=== PATIENT | male | born 1965 | race Caucasian/White ===

== ENCOUNTER 2020-05-02 06:37 | Inpatient (IN) ==
--- NOTE | 2020-03-13 07:57 | History & Physical Report ---
Date of Service March 13, 2020 date of surgery: 04-04-20 Assessment & Plan (1) Osteoarthritis of right knee: Risks and benefits of procedure discussed in detail today, patient would like to proceed with a Right total knee replacement at [facility] as scheduled. will obtain medical clearance from Dr Alarcon prior to surgery as well as obtain PATs at [facility]. Will place on ASA 81mg po bid x 1 month post op, f/u 2 weeks post op for routine post-operative care and x-ray, sooner if having any problems. will make arrangements for HHPT at the time of discharge. At this point in time, has failed conservative measures and would like to proceed with surgical intervention. History of Present Illness Chief Complaint: Right knee pain Primary Care Provider: BRUNO RUSH Mr Bradley is a 54 year old male who is here for a follow up of right knee pain, presents for pre-op evaluation prior to a right total knee replacement at [facility]. He presents with pain and stiffness on the right side. He states that the symptoms have been chronic non-traumatic and his symptoms occur constantly with intermittent worsening. Currently the patient states that the symptoms are moderate-severe and he describes the pain as aching, deep, throbbing and sharp. The symptoms occur with activity. He rates his best pain as 4/10. He rates his worst pain as 9/10. He rates his current pain as 7/10. The symptoms are aggravated by daily activities, descending stairs, kneeling, movement, walking and standing. he has had multiple cortisone injections in the past with short term relief, as well as previous right knee scope, PMM in April [address] Diaz. Allergies Allergy/AdvReac Type Severity Reaction Status Date / Time Penicillins AdvReac Intermediate SEVERE Verified 03/07/20 09:48 DIARRHEA Home Medications Home Medications Medication Instructions Recorded Confirmed Type amoxicillin 500 mg PO TID 03/07/20 03/07/20 History atorvastatin [Lipitor] 10 mg PO QAM 03/07/20 03/07/20 History Past Med/Surg History Medical History Hyperlipidemia Osteoarthritis Sleep apnea CPAP DEVICE Surgical History H/O knee surgery LEFT KNEE D/T INFECTION History of arthroscopy RT KNEE History of colonoscopy History of tonsillectomy Hx of oral surgery Hx of vasectomy Family History Brother Family history of diabetes mellitus Grandmother (Maternal) Family history of diabetes mellitus Social History Preferred Language: Togolese Communication Ability: Effective Security Orderly Required: No Beliefs That Will Affect Care: None Current Living Situation: Family Feels Safe at Home: Yes Safety Concerns: Feels Safe At This Time Smoking Status: Never smoker Do You Dip or Chew Tobacco: No ; Second Hand Exposure: No ; Tobacco Cessation Education Requested by Patient: No Hx Alcohol Use: Yes Hx Substance Use: No Review of Systems Review of Systems: All systems reviewed & are unremarkable except as noted in HPI & below Constitutional: no fever, no chills and no sweats Respiratory: no cough and no dyspnea Cardiovascular: no chest pain, no dyspnea and no orthopnea Gastrointestinal: no abdominal pain, no nausea and no vomiting Musculoskeletal: as per Subjective / HPI Physical Exam Physical Exam: Ht: 5ft 9in Wt: 158.75kg BP: 130/80 Pulse: 80 Constitutional: WD/WN, vitals as above no acute distress Respiratory: normal respiratory effort, lungs clear to auscultation no respiratory distress, no labored breathing and does not use accessory muscles Cardiovascular: RRR, no murmur, no edema Gastrointestinal (Abdomen): normal bowel sounds, soft, nontender, no hepatosplenomegaly Musculoskeletal: Knee: + knee abnormal to inspection (right knee), + effusion (+1 effusion), + surgical incision (well healed portals), + limited ROM of knee (ROM 0/3/110), + knee ROM with crepitation, + joint line tenderness (medial joint line) and + Melissa's sign positive; no deformity, no skin erythema, no ecchymosis, no valgus laxity, no varus laxity, anterior drawer test negative, Johnny's sign negative and pivot shift test negative Results & Data Results & Data ([facility]) Diagnostic Findings right knee x-ray from 12/23/19 showing narrowing of the medial compartment with overall varus alignment, there is also narrowing of the patellofemoral joint. there is osteophyte formation, subchondral sclerosis noted, no loose bodies, no acute bony pathology. overall impression Right knee Osteoarthritis.
--- NOTE | 2020-04-24 15:18 | History & Physical Report ---
Date of Service April 24, 2020 date of surgery: 05-02-20 Assessment & Plan (1) Osteoarthritis of right knee: Risks and benefits of procedure discussed in detail today, patient would like to proceed with a Right total knee replacement at [facility] as scheduled. will obtain medical clearance from Dr Alarcon prior to surgery as well as obtain PATs at [facility]. Will place on ASA 81mg po bid x 1 month post op, f/u 2 weeks post op for routine post-operative care and x-ray, sooner if having any problems. will make arrangements for HHPT at the time of discharge. At this point in time, has failed conservative measures and would like to proceed with surgical intervention. History of Present Illness Chief Complaint: right knee pain Primary Care Provider: BRUNO RUSH Mr Bradley is a 54 year old male who is here for a follow up of right knee pain, presents for pre-op evaluation prior to a right total knee replacement at [facility]. He presents with pain and stiffness on the right side. He states that the symptoms have been chronic non-traumatic and his symptoms occur constantly with intermittent worsening. Currently the patient states that the symptoms are moderate-severe and he describes the pain as aching, deep, throbbing and sharp. The symptoms occur with activity. He rates his best pain as 4/10. He rates his worst pain as 9/10. He rates his current pain as 7/10. The symptoms are aggravated by daily activities, descending stairs, kneeling, movement, walking and standing. he has had multiple cortisone injections in the past with short term relief, as well as previous right knee scope, PMM in April [address] Diaz. Allergies Allergy/AdvReac Type Severity Reaction Status Date / Time Penicillins AdvReac Intermediate SEVERE Verified 03/07/20 09:48 DIARRHEA Home Medications Home Medications Medication Instructions Recorded Confirmed Type amoxicillin 500 mg PO TID 03/07/20 03/07/20 History atorvastatin [Lipitor] 10 mg PO QAM 03/07/20 03/07/20 History Past Med/Surg History Medical History Hyperlipidemia Osteoarthritis Sleep apnea CPAP DEVICE Surgical History H/O knee surgery LEFT KNEE D/T INFECTION History of arthroscopy RT KNEE History of colonoscopy History of tonsillectomy Hx of oral surgery Hx of vasectomy Family History Brother Family history of diabetes mellitus Grandmother (Maternal) Family history of diabetes mellitus Social History Preferred Language: British Communication Ability: Effective Clerk Stenographer Required: No Beliefs That Will Affect Care: None Current Living Situation: Family Feels Safe at Home: Yes Safety Concerns: Feels Safe At This Time Smoking Status: Never smoker Do You Dip or Chew Tobacco: No ; Second Hand Exposure: No ; Tobacco Cessation Education Requested by Patient: No Hx Alcohol Use: Yes Hx Substance Use: No Review of Systems Review of Systems: All systems reviewed & are unremarkable except as noted in HPI & below Constitutional: no fever and no chills Respiratory: no cough and no dyspnea Cardiovascular: no chest pain, no dyspnea and no orthopnea Gastrointestinal: no abdominal pain, no nausea and no vomiting Musculoskeletal: as per Subjective / HPI Physical Exam Physical Exam: Ht: 5ft 9in Wt: 158.75kg BP: 130/80 Pulse: 80 Constitutional: WD/WN, vitals as above no acute distress Respiratory: normal respiratory effort, lungs clear to auscultation no respiratory distress, no labored breathing and does not use accessory muscles Cardiovascular: RRR, no murmur, no edema Gastrointestinal (Abdomen): normal bowel sounds, soft, nontender, no hepatosplenomegaly Musculoskeletal: Knee: + knee abnormal to inspection (right knee), + effusion (+1 effusion), + surgical incision (well healed portals), + limited ROM of knee (ROM 0/3/110), + knee ROM with crepitation, + joint line tenderness (medial joint line) and + Melissa's sign positive; no deformity, no skin erythema, no ecchymosis, no valgus laxity, no varus laxity, anterior drawer test negative, Johnny's sign negative and pivot shift test negative Results & Data Results & Data ([facility]) Diagnostic Findings right knee x-ray from 12/23/19 showing narrowing of the medial compartment with overall varus alignment, there is also narrowing of the patellofemoral joint. there is osteophyte formation, subchondral sclerosis noted, no loose bodies, no acute bony pathology. overall impression Right knee Osteoarthritis.
--- NOTE | 2020-04-25 14:04 | Anesthesiology Consultation ---
Date of Service April 25, 2020 Assessment & Plan (1) Encounter for pre-operative examination: Chart Review Chart Review: Acceptable Risk for Surgery and Patient NOT seen in Pre Admission Testing PCP 04/21/2020: pt is acceptable risk for upcoming surgery. Consults Requested none History Surgery Operation Date: 05/02/20 12:45 Proposed Procedures p Right Total Knee Arthroplasty - Nithin Farnsworth DO Height/Weight Height: 5 ft 9 in Weight: 158.757 kg Allergies Allergy/AdvReac Type Severity Reaction Status Date / Time Penicillins AdvReac Intermediate SEVERE Verified 03/07/20 09:48 DIARRHEA Medications Home Medications Medication Instructions Recorded Confirmed Last Taken amoxicillin 500 mg PO TID 03/07/20 03/07/20 Unknown atorvastatin [Lipitor] 10 mg PO QAM 03/07/20 03/07/20 Unknown Past Medical History Medical History Hyperlipidemia Osteoarthritis Sleep apnea CPAP DEVICE Past Family History Family History Brother Family history of diabetes mellitus Grandmother (Maternal) Family history of diabetes mellitus Past Surgical History Surgical History H/O knee surgery LEFT KNEE D/T INFECTION History of arthroscopy RT KNEE History of colonoscopy History of tonsillectomy Hx of oral surgery Hx of vasectomy Social History Smoking Status: Never smoker Do You Dip or Chew Tobacco: No Hx Alcohol Use: Yes alcohol intake frequency: holidays/special occasions only Hx Substance Use: No substance use type: does not use Testing Electrocardiogram Date: 03/17/20 Findings: + SB @ (57) Sinus rhythm with ventricular premature complexes in a bigeminal pattern nonspecific T wave abnormality. Echocardiogram Date: 03/23/20 EF 60%. Normal RV and LV.
[~2020-05-02 06:37] MED LIST: ACETAMINOPHEN 500 MG TAB PO SCH; BUPIVACAINE 0.5 % 5 MG/1 ML PF 10ML VIAL ONE; CLINDAMYCIN 600 MG/54 ML BAG IV SCH; CeleBREX 200 MG CAP PO SCH; EPINEPHrine INJ 1 MG/ML AMP ONE; FAMOTIDINE 20 MG TAB PO SCH; GABAPENTIN 600 MG DOSE PO SCH; LR 500ML BOLUS, THEN 15ML/HR IV SCH; METOCLOPRAMIDE HCL 10 MG TABLET PO SCH; ROPIVACAINE 0.5% 5 MG/ML 30 ML VIAL ONE; ROPIVACAINE 0.5% HCL/PF 150 MG, BUPIVACAINE 0.5% MPF 30 ML, EPINEPHrine 30MG/30ML (OR U... INSTIL SCH; TRANEXAMIC ACID 1,000 MG **IV Intra-op IV SCH; TRANEXAMIC ACID 1,000 MG **IV Pre-op IV SCH; dexAMETHasone 4 MG TAB PO SCH
[2020-05-02] MEDS ORDERED: PROPOFOL IV EMULSION 10 MG/ML 20 ML VIAL IV ONE (06:39)
[2020-05-02] MEDS ORDERED: LIDOCAINE HCL 2% 2 ML VIAL/AMP(20MG/ML) INFIL ONE (06:39)
[2020-05-02] MEDS ORDERED: MIDAZOLAM HCL 1 MG/ML 2ML VIAL ONE ×3 (06:40→10:25)
--- NOTE | 2020-05-02 07:19 | XRay Report ---
XR chest Pre-admission PA/Lat CLINICAL HISTORY: Preoperative evaluation. COMPARISON STUDY: No previous studies for comparison. FINDINGS: Lung volumes are normal. Lungs are clear. There is no pneumothorax or pleural effusion. Car diac size is normal. Mediastinal contours are normal. There is no evidence for pulmonary edema. IMPRESSION: No acute cardiopulmonary findings. ACT 112: Negative or not required by law. Electronically signed by: Eh Del Real M.D. 05/02/2020 7:18 AM
--- NOTE | 2020-05-02 07:38 | History & Physical Bridge Note ---
Date of Service May 02, 2020 History & Physical Bridge Note I have examined the patient, reviewed the History & Physical and in the interval since the performance of the History & Physical I have noted the following changes of clinical significance: no changes noted
[2020-05-02] MEDS ORDERED: BACITRACIN INJ 50,000 UNIT VIAL ONE (08:04)
[2020-05-02] MEDS ORDERED: ORTHO JOINT ANESTHETIC ONE (08:04)
[2020-05-02] MEDS ORDERED: CLINDAMYCIN PHOS 300 MG/2 ML VIAL ONE (09:24)
[2020-05-02] MEDS ORDERED: ePHEDrine sulfate 50 MG/ML SYR ONE (09:27)
[2020-05-02] MEDS ORDERED: fentaNYL citrate 100 MCG/2 ML VIAL ONE (09:54)
[2020-05-02] MEDS ORDERED: ePHEDrine sulfate 50 MG/ML AMP IV PRN (10:14)
[2020-05-02] MEDS ORDERED: ATROPINE SULFATE 0.1 MG/ML 10ML SYR IV PRN (10:14)
[2020-05-02] MEDS ORDERED: GLYCOPYRROLATE 0.2 MG/ML VIAL ONE (10:27)
--- NOTE | 2020-05-02 10:27 | Operative Report ---
Post Operative Report Pre & Post Diagnosis Operation Date: 05/02/20 08:35 Pre-Op Diagnosis: Right Knee Osteoarthritis Post-Op Diagnosis: Right Knee Osteoarthritis I identified the patient and participated in the time-out.: Yes Procedure Operation Date: 05/02/20 08:35 Actual Procedures p Right Total Knee Arthroplasty(Right) utilizing [facility] [employer] [facility] journey 2 patient matched total knee arthroplasty size 8 femur size 7 tibia with an 18 x 100 mm stem 12 mm polyethylene high flex 35 oval patella- Nithin Farnsworth DO Surgeon Nithin Farnsworth DO Community Planner NATASHA Cleary Estimated Blood Loss 10 Findings Consistent with Post-Op Diagnosis Patient presents with severe end-stage tricompartmental degenerative joint disease with [id number] changes medial lateral osteophytes sclerosis subchondral cystic changes moderate to large effusion pseudo-ligamentous laxity no response to conservative management patient resents for total knee arthroplasty. Specimens Bone and cartilage Drains Medium bore Hemovac Anesthesia Type MAC Regional Complications none Disposition Accompanied Patient To Recovery: No Disposition: Recovery Room Indications Patient presents with ongoing complaints of pain trouble to the right knee no response to conservative management the above intraoperative findings were noted patient failed times a corticosteroid injection Visco supplementation relative rest activity modification weight loss the above intraoperative findings were noted. Description of Procedure Please note patient had a BMI of 52After proper prepping and draping of the Right lower extremity anterior midline incision was made over the region of the extensor extensor mechanism after meticulous hemostasis was obtained and maintained in subcutaneous tissues a medial parapatellar incision was made The patella was subluxed lateralward the medial lateral gutter were cleaned from any hypertrophic synovitis and scar tissue of the distal femoral block was placed and the distal femoral osteotomy cut was made subsequently the chamfers anterior and posterior osteotomy cuts were made utilizing the 4-in-1 block the tibia was subsequently subluxed anteriorward medial and ateral meniscal remnants were excised in their entirety remnants of the anterior and posterior cruciate ligaments were excised in their entirety excellent exposure of the proximal tibia was obtained the tibial osteotomy guide was placed on the proximal tibial osteotomy cut was made once again the knee was irrigated with copious amounts of sterile saline solution the patella was subsequently everted lateralward thickened scar tissue around the patella was removed the patella was subsequently cut utilizing a freehand technique and was drilled prepared for final preparation and placement of patella socially flexion-extension gaps were checked and the equal and symmetric trials were placed to the appropriate femoral and tibial trials with poly-spacer being placed for equal flexion and extension gaps and full range of motion including extension to 0 and flexion to 140 the trial components after having been taken to recovery range of motion was subsequently removed meticulous hemostasis was obtained and maintained subsequently a knee block injection of joint cocktail including ropivacaine 0.5% 150 mg. Bupivacaine 0.5% epinephrine 1-200,030 mL's toradol 30 mg dexamethasone 4 mg ketamine 10 mg clonidine 100 micrograms normal saline solution 30 mg was infiltrated into the soft tissues of the posterior knee medial lateral gutters and periosteal synovium special attention was paid to protect neurovascular structures at all times subsequently trial components having been removed the knee was irrigated with sterile saline solution. debris was removed the proximal tibia was subsequently prepared and was made ready for the placement of the tibial component tibial component was also cemented and tamped into position the femoral component was subsequently placed and cemented in the position the patellar component was subsequently cemented in position because hemostasis once again obtained and maintained wound having been thoroughly irrigated with debridement and debridement lavage was performed as well as a medial parapatellar incision closed with #1 Vicryl in interrupted fashion subcutaneous was closed with #2 Vicryl skin was closed with skin clips. PA-C was necessary for prepping and drapping as well as wound closure of deep fascia Sub cutaneous tissue and skin and was necessary for the case. A sterile compressive dressing was placed patient was taken to recovery in stable condition of report dictated by Javad I attest to the content of the Intraoperative Record and any orders documented therein. Any exceptions are noted below. I attest to the content of the Intraoperative Record and any orders documented therein. Any exceptions are noted below.
--- NOTE | 2020-05-02 11:39 | Anesthesiology Progress Note ---
Date of Service May 02, 2020 Anesthesia Post Procedure Vital Signs Vital Signs: Temp Pulse Pulse Resp BP BP Pulse Ox 05/02/20 11:35 59 L 18 118/68 94 05/02/20 11:26 68 17 126/71 95 05/02/20 11:16 58 L 19 125/60 98 05/02/20 11:06 36.0 C L 68 20 126/63 97 05/02/20 07:23 36.8 C 61 24 165/92 H 97 Pain Intensity Right Knee: Pain Intensity: 0 Transfer of Care Handoff Completed per policy Notes Mental Status: alert / awake / arousable Patient Amnestic to Procedure: Yes Nausea / Vomiting: adequately controlled Pain: adequately controlled Airway Patency, RR, SpO2: stable & adequate BP & HR: stable & adequate Hydration State: stable & adequate Neuraxial Anesthesia: was administered and sensory block is resolving Anesthetic Complications: no major complications apparent
--- NOTE | 2020-05-02 11:46 | XRay Report ---
XR knee RT 1 or 2V routine HISTORY: 54 years-old Male Surgical Post Op right knee total joint arthroplasty COMPARISON: None TECHNIQUE: 2 views of the right knee FINDINGS: Right knee total joint arthroplasty and patella resurfacing. Satisfactory alignment without acute fra cture or retained foreign body identified. Expected postoperative soft tissue swelling and deep tissu e air. Anterior midline skin ned with surgical drainage catheter. IMPRESSION: Right knee total joint arthroplasty with expected postoperative findings. ACT 112: Negative or not required by law. The above report was generated using voice recognition software. It may contain grammatical, syntax o r spelling errors. Electronically signed by: Dani Rivers M.D. 05/02/2020 11:45 AM
[2020-05-02] MEDS ORDERED: bisacodyL 10 MG SUPP PR PRN (12:07)
[2020-05-02] MEDS ORDERED: NALOXONE HCL 0.4 MG/1 ML VIAL/CARP IV PRN (12:07)
[2020-05-02] MEDS ORDERED: METOCLOPRAMIDE HCL INJ 5 MG/ML 2 ML VIAL IV PRN (12:07)
[2020-05-02] MEDS ORDERED: MAGNESIUM HYDROXIDE SUSP 30 ML UDC PO PRN (12:07)
[2020-05-02] MEDS ORDERED: ONDANSETRON INJ 2 MG/ML 2 ML VIAL IV PRN (12:07)
[2020-05-02] MEDS ORDERED: HYDROmorphone INJ 1 MG/ML SYRINGE IV PRN (12:07)
[2020-05-02] MEDS: SODIUM CHLORIDE 0.9% 1000ML 1,000 ML IV SCH ×2 (12:37→23:41)
[2020-05-02] MEDS: MISSING PHYSICIAN SIGNATURE ON ORDER SCH ×3 (12:45→13:05)
--- NOTE | 2020-05-02 13:28 | Hospitalist Consultation ---
Date of Consultation May 02, 2020 Assessment & Plan (1) Osteoarthritis of right knee: S/p right knee TKA 05/02 Pain control, dvt proph per primary Monitor for acute blood loss - cbc am (2) HLD (hyperlipidemia): continue atorvastatin (3) Sleep apnea: May use own cpap History of Present Illness Attending Physician: Nithin Farnsworth, History of Present Illness Mr. Bradley is feeling well post operatively, no complaints. 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 smoker, very rare alcohol Allergies Allergy/AdvReac Type Severity Reaction Status Date / Time Penicillins Allergy Mild SEVERE Verified 05/02/20 07:09 DIARRHEA and mild rash Home Medications Home Medications Medication Instructions Recorded Confirmed Type atorvastatin [Lipitor] 10 mg PO QAM 03/07/20 05/02/20 History Patient History Medical History Hyperlipidemia Osteoarthritis Sleep apnea CPAP DEVICE Surgical History H/O knee surgery LEFT KNEE D/T INFECTION History of arthroscopy RT KNEE History of colonoscopy History of tonsillectomy Hx of oral surgery Hx of vasectomy Family History Brother Family history of diabetes mellitus Grandmother (Maternal) Family history of diabetes mellitus Social History Preferred Language: Central African Communication Ability: Effective Centerless Grinder Required: No Beliefs That Will Affect Care: None Current Living Situation: Family Feels Safe at Home: Yes Safety Concerns: Feels Safe At This Time Smoking Status: Never smoker Do You Dip or Chew Tobacco: No ; Second Hand Exposure: No ; Tobacco Cessation Education Requested by Patient: No Hx Alcohol Use: Yes Hx Substance Use: No Review of Systems Constitutional: no fever, no chills and no body aches Respiratory: no cough and no dyspnea Cardiovascular: + lightheadedness; no chest pain and no dyspnea Gastrointestinal: no abdominal pain, no nausea and no vomiting Genitourinary: no dysuria and no urinary hesitancy Musculoskeletal: no joint pain and no muscle weakness Integumentary: no rash Neurologic: no loss of sensation Physical Exam Physical Exam: General: no distress Eyes: normal inspection, PERLL Respiratory: chest non tender, clear to auscultation, normal breath sounds, no respiratory distress, no accessory muscle use Cardiac: regular rate and rhythm, no rub or gallop, no murmur, no edema, no jvd GI/: active bowel sounds, no abd pain or tenderness, soft, non distended Extremities: normal range of motion, normal strength, non tender Neuro/Psych: alert and oriented x 3, normal mood and affect Skin: normal color, dry Results & Data Results & Data ([facility]) Vital Signs (Past 12 Hours) Vital Signs Temp Pulse Pulse Resp BP BP Pulse Ox 05/02/20 13:00 81 16 113/72 96 05/02/20 12:30 60 16 113/74 96 05/02/20 12:00 36.3 C L 68 18 131/73 95 05/02/20 11:50 36.3 C L 54 L 16 125/52 L 96 05/02/20 11:45 36.3 C L 52 L 12 118/58 L 96 05/02/20 11:35 59 L 18 118/68 94 05/02/20 11:26 68 17 126/71 95 05/02/20 11:16 58 L 19 125/60 98 05/02/20 11:06 36.0 C L 68 20 126/63 97 05/02/20 07:23 36.8 C 61 24 165/92 H 97 PG Care Time/CCT Total # of Minutes Spent Total Time Spent with Patient: Total time spent is greater than 50% in coordination of care (as documented) at patient's floor/unit and/or counseling patient: Coding Level of Care Code 92722 Inpt Consult Level 3 Diagnoses Osteoarthritis of right knee M17.11 HLD (hyperlipidemia) E78.5 Sleep apnea G47.30
[2020-05-02] MEDS: ACETAMINOPHEN 500 MG TAB PO SCH ×2 (14:11→21:38)
[2020-05-02] MEDS: KETOROLAC 30 MG/ML VIAL IV SCH ×2 (14:11→19:37)
[2020-05-02] MEDS: CLINDAMYCIN 600 MG in DEXTROSE 5% 50 ML IV SCH ×2 (16:29→23:41)
[2020-05-02] MEDS: OXYCODONE HCL IR 5 MG TAB (IMMEDIATE RELEASE) PO PRN ×2 (16:36→22:51)
[2020-05-02] MEDS ORDERED: SENNA 8.6 MG TAB PO SCH (21:00)
[2020-05-02] MEDS: ASPIRIN 81 MG ECTAB PO SCH (21:39)
[2020-05-02] MEDS: DOCUSATE SODIUM 100 MG CAP PO SCH (21:39)
[2020-05-03] MEDS: KETOROLAC 30 MG/ML VIAL IV SCH ×2 (02:41→08:32)
[2020-05-03] MEDS: ACETAMINOPHEN 500 MG TAB PO SCH (05:12)
[2020-05-03 06:40] LABS: Hematocrit (blood only) 36.7 % (42-52); Hemoglobin 12.1 g/dL (14.0-18.0); Mean Corpuscular Hemoglobin 29.9 pg (25-34); Mean Corpuscular Volume 90.6 fL (80-100); Mean Platelet Volume 10.3 fL (7.4-10.4); Platelet Count 215 K/uL (130-400); RDW Coefficient of Variation 13.5 % (11.5-14.5); RDW Standard Deviation 44.6 fL (36.4-46.3); Red Blood Count 4.05 M/uL (4.7-6.1)
[2020-05-03 07:11] LABS: BUN Creatinine Ratio 18.1 (10-20); Calcium 8.2 mg/dl (8.5-10.1); Creatinine Clr Calc Pharmacy 111.7 ml/min; Est GFR (African American) 85.6; Est GFR (Non-African American) 73.8; Potassium 4.4 mmol/L (3.5-5.1)
[2020-05-03] MEDS: OXYCODONE HCL IR 5 MG TAB (IMMEDIATE RELEASE) PO PRN ×2 (07:12→11:53)
--- NOTE | 2020-05-03 08:08 | Orthopedic Progress Note ---
Date of Service May 03, 2020 Assessment & Plan (1) History of total right knee replacement: POD #1 s/p Right TKA pt/ot dvt proph with SANTOS/SCD/ASA plan for d/c home with HHPT, possibly after PT today. Admission and Anticipated Discharge Date Admission Date: May 02, 2020 Subjective POD #1 s/p Right TKA Review of Systems Constitutional: no fever, no chills and no sweats Respiratory: no cough and no dyspnea Cardiovascular: no chest pain and no dyspnea Gastrointestinal: no abdominal pain, no nausea and no vomiting Physical Exam Physical Exam: Vital Signs Temp 36.4 C L 05/03/20 07:48 Pulse 56 L 05/03/20 07:48 Resp 18 05/03/20 07:48 BP 131/69 05/03/20 07:48 Pulse Ox 97 05/03/20 07:48 Intake & Output 05/02/20 05/03/20 05/03/20 18:59 06:59 18:59 Intake Total 3229.667 / 4998.66 7 1769.000 / 4998.66 7 Output Total 1105 / 2205 1100 / 2205 Balance 2124.667 / 2793.66 7 669.000 / 2793.667 Weight 159.6 kg Intake: IV 1304.667 / 2513.66 7 1209.000 / 2513.66 7 Cleocin 600 mg In D5w 50 ml @ 54 / 108 54 / 108 100 mls/hr IV Q8H JANE Rx#: [id number] CLEOCIN 600 mg In 54 ml @ 100 54 / 54 mls/hr IV PREO P JANE Rx#: [id number] Lr 1,000 ml @ 15 mls/hr IV . 600 / 600 Q24H JANE Rx#:[id number] Nss 1000ML 1,0 00 ml @ 100 mls/ 396.667 / 1667.091 9913.000 / 1551.66 7 hr IV .Q10H SC H Rx#:[id number] TRANEXAMIC ACI D / 0.7% NACL 1, 200 / 200 000 mg In 100 ml @ 600 mls/hr IV TODAY@0600 JANE Rx#:[id number] IV Perioperative 1300 / 1300 Oral 625 / 1185 560 / 1185 Output: Urine 102 / 5 1000 / 2024 Estimated Blood Loss 10 / 10 Drain Output 70 / 170 100 / 170 Right Knee Hem ovac 70 / 170 100 / 170 Constitutional: WD/WN, vitals as above no acute distress Musculoskeletal: Right Leg: NVDI, calf SNT, negative sara sign. DP palpable, able to wiggle toes/ankle movement without difficulty. dressing clean dry and intact. Prevena functioning properly. Results & Data ([facility]) Vital Signs (Past 12 Hours) Vital Signs Temp Pulse Pulse Pulse Resp BP Pulse Ox 05/03/20 07:48 36.4 C L 56 L 18 131/69 97 05/03/20 03:18 56 L 14 97 05/03/20 02:42 36.3 C L 51 L 14 106/63 98 05/02/20 23:15 55 L 18 96 05/02/20 22:53 55 L 05/02/20 22:50 36.3 C L 50 L 18 118/65 97 Laboratory Results Laboratory Results WBC 14.30 K/uL (4.8-10.8) H 05/03/20 06:15 RBC 4.05 M/uL (4.7-6.1) L 05/03/20 06:15 Hgb 12.1 g/dL (14.0-18.0) L 05/03/20 06:15 Hct 36.7 % (42-52) L 05/03/20 06:15 MCV 90.6 fL (80-100) 05/03/20 06:15 MCH 29.9 pg (25-34) 05/03/20 06:15 MCHC 33.0 g/dL (32-36) 05/03/20 06:15 RDW Std Deviation 44.6 fL (36.4-46.3) 05/03/20 06:15 RDW Coeff of Sandoval 13.5 % (11.5-14.5) 05/03/20 06:15 Plt Count 215 K/uL (130-400) 05/03/20 06:15 MPV 10.3 fL (7.4-10.4) 05/03/20 06:15 Sodium 136 mmol/L (136-145) 05/03/20 06:15 Potassium 4.4 mmol/L (3.5-5.1) 05/03/20 06:15 Chloride 107 mmol/L (98-107) 05/03/20 06:15 Carbon Dioxide 23 mmol/L (21-32) 05/03/20 06:15 Anion Gap 6.0 (3-11) 05/03/20 06:15 BUN 20 mg/dl (7-18) H 05/03/20 06:15 Creatinine 1.11 mg/dl (0.6-1.4) 05/03/20 06:15 Est Cr Clr Drug Dosing 111.7 ml/min 05/03/20 06:15 Est GFR ( Amer) 85.6 05/03/20 06:15 Est GFR (Non-Af Amer) 73.8 05/03/20 06:15 BUN/Creatinine Ratio 18.1 (10-20) 05/03/20 06:15 Glucose 161 mg/dl (70-99) H 05/03/20 06:15 Calcium 8.2 mg/dl (8.5-10.1) L 05/03/20 06:15 Blood Type A Positive 05/02/20 06:52 Antibody Screen NEGATIVE 05/02/20 06:52 Diagnostic Findings XR knee RT 1 or 2V routine HISTORY: 54 years-old Male Surgical Post Op right knee total joint arthroplasty COMPARISON: None TECHNIQUE: 2 views of the right knee FINDINGS: Right knee total joint arthroplasty and patella resurfacing. Satisfactory alignment without acute fracture or retained foreign body identified. Expected postoperative soft tissue swelling and deep tissue air. Anterior midline skin ned with surgical drainage catheter. IMPRESSION: Right knee total joint arthroplasty with expected postoperative findings.
--- NOTE | 2020-05-03 08:20 | Anesthesiology Progress Note ---
Date of Service May 03, 2020 Anesthesia Post Procedure Vital Signs Vital Signs: Temp Pulse Pulse Pulse Pulse Pulse Resp 05/03/20 07:48 36.4 C L 56 L 18 05/03/20 03:18 56 L 14 05/03/20 02:42 36.3 C L 51 L 14 05/02/20 23:15 55 L 18 05/02/20 22:53 55 L 05/02/20 22:50 36.3 C L 50 L 18 05/02/20 20:00 36.5 C 56 L 16 05/02/20 15:15 36.2 C L 60 16 05/02/20 14:00 36.4 C L 60 18 05/02/20 13:00 81 16 05/02/20 12:30 60 16 05/02/20 12:00 36.3 C L 68 18 05/02/20 11:50 36.3 C L 54 L 16 05/02/20 11:45 36.3 C L 52 L 12 05/02/20 11:35 59 L 18 05/02/20 11:26 68 17 05/02/20 11:16 58 L 19 05/02/20 11:06 36.0 C L 68 20 BP Pulse Ox 05/03/20 07:48 131/69 97 05/03/20 03:18 97 05/03/20 02:42 106/63 98 05/02/20 23:15 96 05/02/20 22:53 05/02/20 22:50 118/65 97 05/02/20 20:00 122/66 95 05/02/20 15:15 111/68 96 05/02/20 14:00 103/62 96 05/02/20 13:00 113/72 96 05/02/20 12:30 113/74 96 05/02/20 12:00 131/73 95 05/02/20 11:50 125/52 L 96 05/02/20 11:45 118/58 L 96 05/02/20 11:35 118/68 94 05/02/20 11:26 126/71 95 05/02/20 11:16 125/60 98 05/02/20 11:06 126/63 97 Pain Intensity Right Knee: Pain Intensity: 5 Notes Mental Status: alert / awake / arousable and participated in evaluation Nausea / Vomiting: adequately controlled Pain: adequately controlled Airway Patency, RR, SpO2: stable & adequate BP & HR: stable & adequate Hydration State: stable & adequate
[2020-05-03] MEDS: ASPIRIN 81 MG ECTAB PO SCH (08:32)
[2020-05-03] MEDS: DOCUSATE SODIUM 100 MG CAP PO SCH (08:32)
[2020-05-03] MEDS ORDERED: MULTIVITAMIN TAB PO SCH (09:00)
[2020-05-03] MEDS ORDERED: ATORVASTATIN 10 MG TAB PO SCH (09:00)
--- NOTE | 2020-05-03 19:21 | Discharge Summary ---
Date of Service date of discharge: May 03, 2020 date of admission: 05-02-20 Admission HPI Per Admitting Provider Mr Bradley is a 54 year old male who is here for a follow up of right knee pain, presents for pre-op evaluation prior to a right total knee replacement at [facility]. He presents with pain and stiffness on the right side. He states that the symptoms have been chronic non-traumatic and his symptoms occur constantly with intermittent worsening. Currently the patient states that the symptoms are moderate-severe and he describes the pain as aching, deep, throbbing and sharp. The symptoms occur with activity. He rates his best pain as 4/10. He rates his worst pain as 9/10. He rates his current pain as 7/10. The symptoms are aggravated by daily activities, descending stairs, kneeling, movement, walking and standing. he has had multiple cortisone injections in the past with short te rm relief, as well as previous right knee scope, PMM in April [address] Diaz. Principal Diagnosis right knee arthritis Discharge Exam Vital Signs Temp Pulse Pulse Pulse Pulse Pulse Resp 05/03/20 11:30 36.4 C L 53 L 18 05/03/20 11:08 36.4 C L 56 L 51 L 60 56 L 18 05/03/20 07:48 36.4 C L 56 L 18 05/03/20 03:18 56 L 14 05/03/20 02:42 36.3 C L 51 L 14 05/02/20 23:15 55 L 18 05/02/20 22:53 55 L 05/02/20 22:50 36.3 C L 50 L 18 05/02/20 20:00 36.5 C 56 L 16 BP Pulse Ox 05/03/20 11:30 116/67 98 05/03/20 11:08 131/69 97 05/03/20 07:48 131/69 97 05/03/20 03:18 97 05/03/20 02:42 106/63 98 05/02/20 23:15 96 05/02/20 22:53 05/02/20 22:50 118/65 97 05/02/20 20:00 122/66 95 Intake and Output 05/03/20 05/03/20 05/03/20 06:59 14:59 22:59 Intake Total 605.667 / 4998.667 Output Total 750 / 2205 Balance -144.333 / 2793.667 Intake: IV 605.667 / 2513.667 Cleocin 600 mg In D5w 50 ml @ 54 / 108 100 mls/hr IV Q8H JANE Rx#: [id number] Nss 1000ML 1,000 ml @ 100 mls/ 551.667 / 1551.667 hr IV .Q10H JANE Rx#:[id number] Output: Urine 700 / 2025 Drain Output 50 / 170 Right Knee Hemovac 50 / 170 Other: Weight 159.6 kg Patient Weight 05/04/20 06:59 Weight 159.6 kg Constitutional WD/WN, vitals as above no acute distress Musculoskeletal right knee: NVDI, calf SNT, negative sara sign. DP palpable, able to wiggle toes/ankle movement without difficulty. Prevena dressing clean dry and intact. expected post-operative bruising noted. Discharge Data Allergies Allergy/AdvReac Type Severity Reaction Status Date / Time Penicillins Allergy Mild SEVERE Verified 05/02/20 07:09 DIARRHEA and mild rash Consultations 05/02/20 12:07 Consult Case Management - Discharge Planning Routine Consult Hospitalist Routine Procedures Performed Operation Date: 05/02/20 08:35 Actual Procedures p Right Total Knee Arthroplasty(Right) - Nithin Farnsworth DO Ordered Studies 05/02/20 05:00 US - OR guided needle placemen Stat Hospital Course (1) History of total right knee replacement: POD #1 s/p Right TKA pt/ot dvt proph with SANTOS/SCD/ASA plan for d/c home with HHPT, possibly after PT today. Total Time Total Time Spent Total Time Spent (In Minutes): 20 Total Time Includes: Examination of the Patient, Discharge Planning and Medication Reconciliation Discharge Plan Discharge Items Patient Disposition: Home - Home Health Services Reason For Visit: Right Knee Osteoarthritis Discharge Diagnosis: right total knee replacement Condition on Discharge: Good Activity: Resume your previous activity Weightbearing: Full weightbearing and Right weightbearing Non-emergency contact: Surgeon Call non-emergency contact if: you have any medication questions, your temperature is above 101, your wound has increased redness, your wound has increased drainage and your wound pain has increased Follow-up/Referrals: BRUNO RUSH D.O. [Primary Care Provider] - Diet: Regular Addtl Attending Provider Instructions: ACTIVITY RECOMMENDATIONS: SELF CARE INSTRUCTIONS AFTER TOTAL KNEE REPLACEMENT A. You may need to continue a physical therapy program after discharge from the hospital. There are several options available to you. Your doctor will assist you in selecting the best one for you. 1. An out-patient facility 2 to 3 times a week for therapy or home therapy. 2. Continue working on all exercises taught to you in the hospital. Your goals should be to increase bending of your knee to 90 degrees and beyond and to fully straighten your knee. B. You may progress at your own pace from walking with a walker or crutches to a cane; then to no assistive devices. C. Make walking a part of your daily routine. Be up as much as comfortable with rest periods throughout the day. Rest with leg elevation is very important. Use the ice wrap frequently for the first 3-4 weeks. D. There are no restrictions on activities. You may ride in a car, shop, participate in sectional belt mold assembler and all social activities. E. Wear the long elastic stockings (SANTOS hose) 20 hours a day for 2 weeks after surgery. They can be removed several times a day for laundering and for a bath. F. You may shower, no tub baths until cleared by your doctor. SPECIAL CARE INSTRUCTIONS: VERY IMPORTANT TO READ AND REVIEW A. There are a few signs you need to watch for after you are home. Call [facility] if you notice any of the followin. Increased severe knee pain. Some pain is expected especially when you exercise. 2. Increased swelling in your leg or knee; pain or swelling of the calf muscle in either lower leg. 3. Any fluid drainage from the incision. 4. Shortness of breath or chest pain. B. Please call [facility] [place] at if you have any concerns or questions about your operation or recovery. The doctor or his nurse will return your call promptly. C. You must take antibiotics before dental work, bladder, bowel or other surgery. Your doctor will provide you with a permanent care to carry describing this precaution. IMPORTANT: * REMEMBER TO TAKE ASPIRIN, 81 MG, TWICE DAILY FOR 4 WEEKS UNLESS OTHERWISE DIRECTED. THIS IS YOUR BLOOD THINNER. * HIGH RISK PATIENTS MAY BE PRESCRIBED A STRONGER BLOOD THINNER. THIS WILL BE PROVIDED AT DISCHARGE. * CALL IF INCREASED PAIN, REDNESS, DRAINAGE OR FEVER GREATER THAT 101. * WEAR SANTOS HOSE 20 HOURS PER DAY FOR 2 WEEKS. * Prevena- This is a large suction dressing covering your incision. This will help pull any excess drainage from the wound and allow your incision to heal properly. You may shower with this if you can keep the unit outside of the shower. If any bleeding or leakage is noted please call your doctor's office. This will remain on your incision for 7 days and then should be removed. This can be done yourself or by the home nursing staff if applicable. The entire unit is disposable once removed. Once removed, keep incision clean and dry. If redness or drainage is noted, please call your surgeon. IF INCISION IS LEAKING THROUGH DRESSING, CALL THE OFFICE . FOLLOW UP VISIT: If appointment is not already scheduled: Please call [facility] to make a follow-up appointment for 2 weeks after your surgery at . Pending Studies at Discharge: No Stand-Alone Forms: My [facility], Opioid Pain Management, Smoking Cessation Medications and DC Order Prescriptions: New celecoxib [Celebrex] 200 mg Capsule 200 mg PO BID 30 Days Qty: 60 RF: 0 aspirin 81 mg Tablet,Delayed Release (Dr/Ec) 81 mg PO BID 30 Days Qty: 60 RF: 0 acetaminophen 500 mg Tablet 1,000 mg PO Q8 21 Days Qty: 126 RF: 0 oxycodone 5 mg Tablet 5 - 10 mg PO Q4H PRN (Reason: pain) Qty: 30 RF: 0 docusate sodium 100 mg Capsule 100 mg PO BID 10 Days Qty: 20 RF: 0 clindamycin HCl 300 mg capsule 300 mg PO TID 10 Days Qty: 30 RF: 0 Continued atorvastatin [Lipitor] 10 mg Tablet 10 mg PO QAM RF: 0 Discharge Orders: Discharge Order (Routine); Ordered 05/03/20 Ordered By: Christofer Garcia/Other Patient Handouts: Understanding Knee Replacement, Knee Replacement Total Dc Admission Data Admit Date/Time: 05/02/20 11:12 Attending Provider: Nithin Farnsworth Admit Provider: Nithin Farnsworth Primary Care Provider: BRUNO RUSH Other Providers: Brandyn Parrish ; Stephen Coughlin ; Selina Figueroa ; Melissa Win ; Brandon Barrientos ; Edwardo Frazier ; Kristine Wynn ; Nithin Holliday ; Casey Grewal ; Clinton Weller ; Tomeka Kincaid ; Masha Marquez ; Maribel Bird ; Terri Card ; Dontrell Henderson ; Daniela Mariscal ; Cortney Glynn ; Familia Oseguera ; Jm Amador ; Adeel Valdez ; Rosy Arciniega ; Tiffany Hamm ; Desmond Marvin ; Brandon López ; Daniel Padilla ; Noah Kraft ; Laxmi Stack ; Turner Stack ; Nesotr Patricia ; Dwayne Nichols ; Marlena Blum ; Jaime Everett ; Celso Mckenzie ; Elisabeth López ; Fernandez Pisano Other Interventions: Discharge Summary Assessment (RN) Last Done: 05/03/20 11:08 DC Date/Time DO NOT enter until pt leaves facility: 05/03/20 13:33
[2020-05-03] MEDS ORDERED: CeleBREX 200 MG CAP PO SCH (21:00)
== END 2020-05-03 13:33 | disposition home health service (06) | DRG 470 ==
LOC: ASU 06:37 → 3E 11:12

== ENCOUNTER 2022-05-07 08:15 | Inpatient (IN) ==
--- NOTE | 2022-04-04 08:39 | PAT Medication Instructions ---
Medication Instructions Date of Service April 04, 2022 Home Medications atorvastatin 10 mg tablet (Lipitor) 10 mg PO QAM Take morning of surgery With a small sip of water, OTHERWISE NOTHING TO EAT OR DRINK AFTER MIDNIGHT: atorvastatin 10 mg tablet (Lipitor) 10 mg PO QAM Other Notes If you have any questions please call us at [phone] or [phone] or [phone] or [phone]
--- NOTE | 2022-04-05 08:25 | Anesthesiology Consultation ---
Date of Service April 05, 2022 Assessment & Plan (1) Encounter for pre-operative examination: - surgeon ordered PCP clearance 04/29/22. Optimization note faxed to PCP. - COVID screening: Per assessment on 04/05/2022: Travel screen negative, no known COVID-19 positive contacts or current COVID-19 related symptoms in past 2 weeks. Surgeon arranging preop COVID testing, scheduled 05/03/2022. Awaiting results. Chart Review Chart Review: Pending: Refer to Additional Notes / Consult section and Patient seen in Pre Admission Testing Teaching & Discussion Pre-Anesthesia Teaching/Discussion Notes: Instructed NPO after midnight before surgery, except medications with 15 cc of water. Medication instructions provided according to the PAT guidelines. History Surgery Operation Date: 05/07/22 07:15 Proposed Procedures p Left Total Knee Arthroplasty - Nithin Farnsworth DO Height/Weight Height: 5 ft 9 in Weight: 171.2 kg Allergies Allergy/AdvReac Type Severity Reaction Status Date / Time coconut Allergy Intermediate Hives Verified 04/03/22 11:09 Penicillins Allergy Intermediate SEVERE Verified 04/03/22 11:09 DIARRHEA and HIVES Medications Home Medications Medication Instructions Recorded Confirmed Last Taken atorvastatin 10 mg tablet (Lipitor) 10 mg PO QAM 03/07/20 04/03/22 05/01/20 09:00 Past Medical History Medical History (Updated 04/05/22 @ 15:22 by Vilma Li PA-C) Hyperlipidemia Osteoarthritis Pulmonary hypertension RVSP 38 mmHg on 2019 echo Sleep apnea CPAP DEVICE-compliant White coat syndrome with hypertension Patient denies h/o stroke, seizures, heart attack, heart failure, DM, blood clots or blood transfusions. Exercise / Class Metabolic Activity III < 4 Walking/Shop/Light housework (denies CP or SOB, reduced physical activity d/t knee pain) Past Family History Family History Brother Family history of diabetes mellitus Grandmother (Maternal) Family history of diabetes mellitus Other No family history of adverse response to anesthesia Past Surgical History Surgical History (Updated 04/05/22 @ 08:26 by Vilma Li PA-C) H/O knee surgery LEFT KNEE D/T INFECTION History of arthroscopy RT KNEE History of colonoscopy History of tonsillectomy History of total knee replacement RT 05/02/20: SAB L3-L4 x 1 attempt + PNB. No postop issues per anesthesia progress note. Hx of oral surgery Hx of vasectomy S/P trigger finger release Past Anesthesia History No Hx of Anesthesia Complications and No Family Hx of Anesthesia Complications History of PONV No Hx of PONV and No Hx of Motion Sickness Social History Smoking Status: Never smoker Do You Dip or Chew Tobacco: No Hx Alcohol Use: Yes alcohol intake frequency: holidays/special occasions only Hx Substance Use: No substance use type: does not use Review of Systems Occasional dyspnea on exertion walking up hills, states has been walking on flat surfaces for some time due to knee pain/dysfunction and occasional shortness of breath when infrequently walks up a hill has been ongoing with gradual weight gain and reduced activity. Denies change or worsening. (BMI 55) Patient denies chest pain, shortness of breath, reflux, fever, chills, cough, wheezing, or palpitations. Physical Exam Vital Signs Vitals BP 132/68 P 59 TEMP 97.5 SP02 98% on RA RESP 17 Physical Short, thick neck Full cervical extension range of motion without pain TMD 3 finger breaths Mallampati Score 3 Dentition: intact, several missing teeth-none in front, caps/crowns-none in front, denies chipped or loose teeth, implants or bridges Lungs: normal respiratory effort. Clear throughout to auscultation, no adventitious breath sounds Cardiac: regular rate and rhythm, no murmurs noted Carotid arteries: negative bruit bilat Lab Results Anesthesia Preop Results Results Anesthesia Widget: 2 WBC 5.52 K/uL (4.8-10.8) 04/05/22 Hgb 13.2 g/dL (14.0-18.0) L 04/05/22 Hct 40.1 % (42-52) L 04/05/22 Plt 221 K/uL (130-400) 04/05/22 Na 137 mmol/L (136-145) 04/05/22 K 4.5 mmol/L (3.5-5.1) 04/05/22 Cl 104 mmol/L (98-107) 04/05/22 CO2 26 mmol/L (21-32) 04/05/22 BUN 19 mg/dl (6-23) 04/05/22 Creat 1.08 mg/dl (0.6-1.4) 04/05/22 Glucose Level 104 mg/dl (70-99(Fasting)) H 04/05/22 PT 11.2 Seconds (9.0-12.0) 04/05/22 PTT 31.2 Seconds (21.0-31.0) H 04/05/22 INR 1.1 (0.9-1.1) 04/05/22 HA1c 5.8 % (4.5-5.6) H 04/05/22 Urine Color Yellow 04/05/22 Urine Appearance Clear (Clear) 04/05/22 Urine pH 6.5 (4.5-7.5) 04/05/22 Urine Specific [place] 1.015 (1.000-1.030) 04/05/22 Urine Protein Negative (Negative) 04/05/22 Urine Glucose (UA) Negative (Negative) 04/05/22 Urine Ketones Negative (Negative) 04/05/22 Urine Blood Negative (Negative) 04/05/22 Urine Nitrite Negative (Negative) 04/05/22 Urine Bilirubin Negative (Negative) 04/05/22 Urine Urobilinogen Negative (Negative) 04/05/22 Urine Leukocyte Esterase Negative (Negative) 04/05/22 Blood Type A Positive 04/05/22 Antibody Screen NEGATIVE 04/05/22 Testing Electrocardiogram Date: 04/05/22 Sinus bradycardia with marked sinus arrhythmia, rate 54 bpm Chest X-Ray Date: 04/05/22 No acute chest disease. Echocardiogram Date: 03/23/20 EF 60% RVSP at 39 mmHg No significant valvular pathology
--- NOTE | 2022-04-12 08:20 | History & Physical Report ---
Date of Service April 12, 2022 date of surgery: 05/07/22 Procedure: Left Total Knee Arthroplasty Surgeon: Nithin Farnsworth Assessment & Plan (1) Arthritis of knee, left: Plan: Further care discussed with patient and at this point in time has failed conservative measures and would like to proceed with a left total knee replacement. Plan on discharge will be home with home health physical therapy. DVT prophylaxiswith TEDs, SCDs and will also place on aspirin 81 mg p.o. b.i.d. for a month postop. Patient will have follow up appointment in our office two weeks post op for staple/suture removal and re-evaluation. Patient otherwise has no other questions or concerns. The risks and benefits have been discussed including, but not limited to, risk of infection, nerve injury, stiffness, loss of motion, failure to improve, etc. Reasonable outcomes and options of treatment were discussed. An explanation of appropriate alternatives to the procedure that may be advantageous were discussed and their risks and benefits, as well as the risks and benefits of not proceeding with treatment. I offered to answer any additional inquiries concerning the treatment involved. All the patient's questions were answered. The patient is agreeable, understanding of the treatment plan and alternatives, and wishes to proceed with the treatment plan. History of Present Illness Chief Complaint: left knee pain Primary Care Provider: DO Pierce Link is a 56 year old male who complains of left knee pain, presents for pre- op evaluation prior to a left total knee replacement by Dr Farnsworth at [facility]. He complains of pain, decreased range of motion, instability and stiffness in his left knee. Currently the patient states that the symptoms are moderate-severe and rated as 7/10. The pain is described as aching, sharp and throbbing. His symptoms are aggravated by ascending stairs, daily activities, first steps while awake walking. He has been treated with previous cortisone and visco injections in the past without much relief. he is also s/p right TKA approximately 2 years ago. Allergies Allergy/AdvReac Type Severity Reaction Status Date / Time coconut Allergy Intermediate Hives Verified 04/03/22 11:09 Penicillins Allergy Intermediate SEVERE Verified 04/03/22 11:09 DIARRHEA and HIVES Home Medications Medication Instructions Recorded Confirmed Type atorvastatin 10 mg tablet (Lipitor) 10 mg PO QAM 03/07/20 04/03/22 History Past Med/Surg History Medical History Hyperlipidemia Osteoarthritis Pulmonary hypertension RVSP 38 mmHg on 2019 echo Sleep apnea CPAP DEVICE-compliant White coat syndrome with hypertension Surgical History H/O knee surgery LEFT KNEE D/T INFECTION History of arthroscopy RT KNEE History of colonoscopy History of tonsillectomy History of total knee replacement RT 05/02/20: SAB L3-L4 x 1 attempt + PNB. No postop issues per anesthesia progress note. [employer] Nephew journey 2 patient matched total knee arthroplasty size 8 femur size 7 tibia with an 18 x 100 mm stem 12 mm polyethylene high flex 35 oval patella Hx of oral surgery Hx of vasectomy S/P trigger finger release Family History Brother Family history of diabetes mellitus Grandmother (Maternal) Family history of diabetes mellitus Other No family history of adverse response to anesthesia Social History Smoking Status: Never smoker Second Hand Exposure: Yes (IN THE PAST); Hx Alcohol Use: Yes Hx Substance Use: No Preferred Language: Slovenian Communication Ability: Effective Coremaker Pipe Required: No Beliefs That Will Affect Care: None marital status: Current Living Situation: Spouse Feels Safe at Home: Yes Assistive Devices: CPAP and Glasses Review of Systems Review of Systems: All systems reviewed & are unremarkable except as noted in HPI & below Constitutional: no fever, no chills and no sweats Respiratory: no cough and no dyspnea Cardiovascular: no chest pain, no dyspnea and no orthopnea Gastrointestinal: no abdominal pain, no nausea and no vomiting Musculoskeletal: as per Subjective / HPI Physical Exam Physical Exam: HT: 5ft 9in WT: 171kg BP: 130/68 Constitutional: WD/WN, vitals as above no acute distress Respiratory: normal respiratory effort, lungs clear to auscultation no respiratory distress, no labored breathing and does not use accessory muscles Cardiovascular: RRR, no murmur, no edema Gastrointestinal (Abdomen): normal bowel sounds, soft, nontender, no hepatosplenomegaly Musculoskeletal: Knee: + knee abnormal to inspection (LEFT KNEE: ), + effusion (+1 effusion), + limited ROM of knee (ROM 0/3/110), + knee ROM with crepitation, + joint line tenderness (medial joint line) and + Melissa's sign positive; no deformity, no skin erythema, no ecchymosis, no valgus laxity, no varus laxity, anterior drawer test negative, Johnny's sign negative and pivot shift test negative Results & Data Results & Data ([facility]) Laboratory Results Left Knee X-ray: left knee series confirm advanced degenerative changes to the left knee, greatest medial compartments and patellofemoral joint, showing joint space narrowing, osteophyte formation and subchondral sclerosis. no acute bony pathology noted.
[~2022-05-07 08:15] MED LIST changes: -CLINDAMYCIN 600 MG/54 ML BAG IV SCH; -EPINEPHrine INJ 1 MG/ML AMP ONE; -ROPIVACAINE 0.5% HCL/PF 150 MG, BUPIVACAINE 0.5% MPF 30 ML, EPINEPHrine 30MG/30ML (OR U... INSTIL SCH; +ROPIVACAINE 0.5% HCL/PF 150 MG, BUPIVACAINE 0.75% MPF 20 ML, EPINEPHrine 30MG/30ML (OR ... INFIL SCH; -TRANEXAMIC ACID 1,000 MG **IV Intra-op IV SCH; -TRANEXAMIC ACID 1,000 MG **IV Pre-op IV SCH; +VANCOMYCIN HCL 2,000 MG in SODIUM CHLORIDE 0.9% 500 ML IV SCH
--- NOTE | 2022-05-07 09:20 | History & Physical Bridge Note ---
Date of Service May 07, 2022 History & Physical Bridge Note I have examined the patient, reviewed the History & Physical and in the interval since the performance of the History & Physical I have noted the following changes of clinical significance: no changes noted
[2022-05-07] MEDS ORDERED: TRANEXAMIC ACID 100 MG/ML 10 ML VIAL IV SCH (09:30)
[2022-05-07] MEDS ORDERED: TRANEXAMIC ACID / 0.7% NACL 1000MG/100ML BAG IV ONE (09:33)
[2022-05-07] MEDS ORDERED: PROPOFOL IV EMULSION 10 MG/ML 20 ML VIAL IV ONE (10:08)
[2022-05-07] MEDS ORDERED: fentaNYL citrate 100 MCG/2 ML VIAL ONE (10:09)
[2022-05-07] MEDS ORDERED: MIDAZOLAM HCL 1 MG/ML 2ML VIAL ONE ×2 (10:09→10:57)
[2022-05-07] MEDS ORDERED: ATROPINE SULFATE 0.1 MG/ML 10ML SYR IV PRN (10:49)
[2022-05-07] MEDS ORDERED: ePHEDrine sulfate 50 MG/ML AMP IV PRN (10:49)
[2022-05-07] MEDS ORDERED: HYDROmorphone INJ 2 MG/ML SYR/VIAL IV PRN (10:49)
[2022-05-07] MEDS ORDERED: ONDANSETRON INJ 2 MG/ML 2 ML VIAL IV PRN ×2 (10:49→15:30)
[2022-05-07] MEDS ORDERED: PROMETHAZINE HCL 12.5 MG in SODIUM CHLORIDE 0.9% 50 ML IV PRN (10:49)
[2022-05-07] MEDS ORDERED: TRANEXAMIC ACID 1,000 MG **IV Pre-op IV SCH (11:15)
[2022-05-07] MEDS ORDERED: TRANEXAMIC ACID 1,000 MG **IV Intra-op IV SCH (11:15)
[2022-05-07] MEDS ORDERED: ORTHO JOINT ANESTHETIC ONE (11:26)
[2022-05-07] MEDS ORDERED: ePHEDrine sulfate 50 MG/ML AMP ONE (11:30)
[2022-05-07] MEDS ORDERED: GLYCOPYRROLATE 0.2 MG/ML VIAL ONE (11:49)
[2022-05-07] MEDS ORDERED: KETAMINE 50 MG/5 ML SYRINGE ONE ×2 (11:50→12:49)
[2022-05-07] MEDS ORDERED: ONDANSETRON INJ 2 MG/ML 2 ML VIAL ONE (11:54)
--- NOTE | 2022-05-07 13:03 | Operative Report ---
Post Operative Report Pre & Post Diagnosis Operation Date: 05/07/22 10:55 Pre-Op Diagnosis: Left Knee Osteoarthritis morbid obesity BMI 54.8 kg with a weight of 160.4 kg Post-Op Diagnosis: Left Knee Osteoarthritis BMI 54.8 weight 160.4 kg I identified the patient and participated in the time-out.: Yes Procedure Operation Date: 05/07/22 10:55 Actual Procedures p Left Total Knee Arthroplasty(Left) utilizing Garcia [employer] Nephew journey 2 patient matched total knee arthroplasty size 6 femur 5 tibia with a 70 mm short stem 12 polyethylene 32 oval patella Nithin Farnsworth DO Surgeon Nithin Farnsworth DO Card Lacer Jacquard NATASHA Cleary Estimated Blood Loss 15 Findings Consistent with Post-Op Diagnosis Patient presents with severe end-stage tricompartmental degenerative joint disease left knee no response to conservative management patient has a subchondral sclerosis with eburnated [id number] marginal osteophytes moderate to large effusion varus alignment Specimens Bone and cartilage Drains Medium bore Hemovac Anesthesia Type MAC Spinal Regional Complications none Disposition Accompanied Patient To Recovery: No Disposition: Recovery Room Indications Patient presents with severe left knee tricompartmental degenerative joint disease after failed attempted conservative management clinic physical therapy anti-inflammatories relative rest activity modification corticosteroid injection weight reduction the above intraoperative findings were noted Description of Procedure After proper prepping and draping of the left lower extremity anterior midline incision was made over the region of the extensor extensor mechanism after meticulous hemostasis was obtained and maintained in subcutaneous tissues a medial parapatellar incision was made The patella was subluxed lateralward the medial lateral gutter were cleaned from any hypertrophic synovitis and scar tissue of the distal femoral block was placed and the distal femoral osteotomy cut was made subsequently the chamfers anterior and posterior osteotomy cuts were made utilizing the 4-in-1 block the tibia was subsequently subluxed anteriorward medial and ateral meniscal remnants were excised in their entirety remnants of the anterior and posterior cruciate ligaments were excised in their entirety excellent exposure of the proximal tibia was obtained the tibial osteotomy guide was placed on the proximal tibial osteotomy cut was made once again the knee was irrigated with copious amounts of sterile saline solution the patella was subsequently everted lateralward thickened scar tissue around the patella was removed the patella was subsequently cut utilizing a freehand technique and was drilled prepared for final preparation and placement of patella socially flexion-extension gaps were checked and the equal and symmetric trials were placed to the appropriate femoral and tibial trials with poly-spacer being placed for equal flexion and extension gaps and full range of motion including extension to 0 and flexion to 140 the trial components after having been taken to recovery range of motion was subsequently removed meticulous hemostasis was obtained and maintained subsequently a knee block injection of joint cocktail including ropivacaine 0.5% 150 mg. Bupivacaine 0.5% epinephrine 1-200,030 mL's toradol 30 mg dexamethasone 4 mg ketamine 10 mg clonidine 100 micrograms normal saline solution 30 mg was infiltrated into the soft tissues of the posterior knee medial lateral gutters and periosteal synovium special attention was paid to protect neurovascular structures at all times subsequently trial components having been removed the knee was irrigated with sterile saline solution. debris was removed the proximal tibia was subsequently prepared and was made ready for the placement of the tibial component tibial component was also cemented and tamped into position the femoral component was subsequently p laced and cemented in the position the patellar component was subsequently cemented in position because hemostasis once again obtained and maintained wound having been thoroughly irrigated with debridement and debridement lavage was performed as well as a medial parapatellar incision closed with #1 Vicryl in interrupted fashion subcutaneous was closed with #2 Vicryl skin was closed with skin clips. PA-C was necessary for prepping and drapping as well as wound closure of deep fascia Sub cutaneous tissue and skin and was necessary for the case. A sterile compressive dressing was placed patient was taken to recovery in stable condition of report dictated by Javad I attest to the content of the Intraoperative Record and any orders documented therein. Any exceptions are noted below.Due to the complex nature of the procedure, the entire surgery was performed with the operational assistance of . The assista NATASHA Cleary under direct supervision, was involved in the actual performance of all aspects of the surgical procedure including hemostasis, tissue retraction and incision, instrument management, patient positioning, and wound closure.The patient is 168.3 kg with a BMI of 58.3. The patient's habitus did contribute to significant technical difficulty requiring extra time. Additional help was necessary in order to position the patient safely. The use of specialized (longer, deeper) retractors and/or instruments were needed. Due to this, the procedure took chey 20 longer than the standard total knee arthroplasty." I attest to the content of the Intraoperative Record and any orders documented therein. Any exceptions are noted below.
[2022-05-07] MEDS: fentaNYL citrate 100 MCG/2 ML VIAL IV PRN ×2 (14:22→14:27)
--- NOTE | 2022-05-07 14:25 | XRay Report ---
XR knee LT 1 or 2V routine CLINICAL HISTORY: Postoperative evaluation. COMPARISON: None FINDINGS: Alignment of the total left knee arthroplasty is anatomic. There is no periprosthetic frac ture or unexpected radiopaque foreign body. Surgical drains are in place. IMPRESSION: Expected findings following total left knee arthroplasty. ACT 112: Negative or not required by law. Electronically signed by: Eh Del Real M.D. 05/07/2022 2:24 PM
--- NOTE | 2022-05-07 14:59 | Anesthesiology Progress Note ---
Date of Service May 07, 2022 Anesthesia Post Procedure Vital Signs Vital Signs: Temp Pulse Pulse Resp BP Pulse Ox 05/07/22 14:45 52 L 14 129/77 97 05/07/22 14:30 49 L 14 144/72 H 94 05/07/22 14:20 36.5 C 45 L 14 144/72 H 98 05/07/22 14:10 51 L 14 150/77 H 97 05/07/22 14:00 54 L 14 151/73 H 97 05/07/22 13:50 62 14 121/78 99 05/07/22 13:40 36.3 C L 57 L 18 129/65 96 05/07/22 08:48 36.8 C 63 22 168/72 H 98 Transfer of Care Handoff Completed per policy Notes Mental Status: alert / awake / arousable and participated in evaluation Patient Amnestic to Procedure: Yes Nausea / Vomiting: adequately controlled Pain: adequately controlled Airway Patency, RR, SpO2: stable & adequate BP & HR: stable & adequate Hydration State: stable & adequate Anesthetic Complications: no major complications apparent
[2022-05-07] MEDS ORDERED: NALOXONE HCL 0.4 MG/1 ML VIAL/CARP IV PRN (15:30)
[2022-05-07] MEDS ORDERED: diphenhydrAMINE Capsule 25 MG CAP PO PRN (15:30)
[2022-05-07] MEDS ORDERED: MAGNESIUM HYDROXIDE SUSP 30 ML UDC PO PRN (15:30)
[2022-05-07] MEDS ORDERED: METOCLOPRAMIDE HCL INJ 5 MG/ML 2 ML VIAL IV PRN (15:30)
[2022-05-07] MEDS ORDERED: HYDROmorphone INJ 1 MG/ML SYRINGE IV PRN (15:30)
[2022-05-07] MEDS ORDERED: bisacodyL 10 MG SUPP PR PRN (15:30)
[2022-05-07] MEDS: SODIUM CHLORIDE 0.9% 1000ML 1,000 ML IV SCH (16:10)
[2022-05-07] MEDS: KETOROLAC 30 MG/ML VIAL IV SCH ×2 (16:14→22:09)
[2022-05-07] MEDS: ACETAMINOPHEN 500 MG TAB PO SCH ×2 (16:14→22:10)
[2022-05-07] MEDS: ASPIRIN 81 MG ECTAB PO SCH (20:04)
[2022-05-07] MEDS: CLINDAMYCIN 600 MG in DEXTROSE 5% 50 ML IV SCH (20:04)
[2022-05-07] MEDS: DOCUSATE SODIUM 100 MG CAP PO SCH (20:05)
[2022-05-07] MEDS: CeleBREX 200 MG CAP PO SCH (20:06)
[2022-05-07] MEDS ORDERED: ATORVASTATIN 10 MG TAB PO SCH (21:00)
[2022-05-07] MEDS ORDERED: SENNA 8.6 MG TAB PO SCH (21:00)
[2022-05-07] MEDS: oxyCODONE HCL IR 5 MG TAB (IMMEDIATE RELEASE) PO PRN (22:15)
[2022-05-08] MEDS: SODIUM CHLORIDE 0.9% 1000ML 1,000 ML IV SCH (00:28)
[2022-05-08] MEDS: KETOROLAC 30 MG/ML VIAL IV SCH ×2 (04:17→10:03)
[2022-05-08] MEDS: CLINDAMYCIN 600 MG in DEXTROSE 5% 50 ML IV SCH (04:18)
[2022-05-08] MEDS: oxyCODONE HCL IR 5 MG TAB (IMMEDIATE RELEASE) PO PRN (05:50)
[2022-05-08] MEDS: ACETAMINOPHEN 500 MG TAB PO SCH (05:50)
[2022-05-08 06:06] LABS: Hematocrit (blood only) 34.8 % (42-52); Hemoglobin 11.5 g/dL (14.0-18.0); Mean Corpuscular Hemoglobin 29.6 pg (25-34); Mean Corpuscular Volume 89.7 fL (80-100); Mean Platelet Volume 9.8 fL (7.4-10.4); Platelet Count 228 K/uL (130-400); RDW Coefficient of Variation 13.8 % (11.5-14.5); RDW Standard Deviation 45.4 fL (36.4-46.3); Red Blood Count 3.88 M/uL (4.7-6.1); White Blood Count 13.27 K/uL (4.8-10.8)
[2022-05-08 06:28] LABS: BUN Creatinine Ratio 18.8 (10-20); Calcium 8.2 mg/dl (8.5-10.1); Creatinine Clr Calc Pharmacy 112.3 ml/min; Est GFR (African American) 83.5 ml/min; Potassium 4.4 mmol/L (3.5-5.1)
[2022-05-08] MEDS: ASPIRIN 81 MG ECTAB PO SCH (08:11)
[2022-05-08] MEDS: CeleBREX 200 MG CAP PO SCH (08:11)
[2022-05-08] MEDS: DOCUSATE SODIUM 100 MG CAP PO SCH (08:11)
[2022-05-08] MEDS ORDERED: MULTIVITAMIN TAB PO SCH (09:00)
--- NOTE | 2022-05-08 09:08 | Orthopedic Progress Note ---
Date of Service May 08, 2022 Assessment & Plan (1) History of total left knee replacement: Plan: POD #1 s/p Left TKA pt/ot dvt proph with SANTOS/SCD/ASA plan for d/c home with HHPT after PT today Admission and Anticipated Discharge Date Admission Date: May 07, 2022 Subjective POD #1 s/p Left TKA Review of Systems Constitutional: no fever, no chills and no sweats Respiratory: no cough and no dyspnea Cardiovascular: no chest pain and no dyspnea Gastrointestinal: no abdominal pain, no nausea and no vomiting Physical Exam Physical Exam: Vital Signs Temp Pulse Pulse Resp BP BP Pulse Ox 05/08/22 07:27 36.4 C L 55 L 18 115/70 98 05/08/22 04:58 36.8 C 55 L 19 134/89 97 05/07/22 22:17 36.6 C 56 L 18 116/65 96 05/07/22 19:08 36.4 C L 75 20 128/75 95 05/07/22 18:00 36.6 C 56 L 18 158/65 H 96 05/07/22 17:00 36.4 C L 55 L 18 162/72 H 96 05/07/22 16:06 36.3 C L 49 L 20 154/68 H 97 05/07/22 15:30 36.3 C L 56 L 18 130/69 96 05/07/22 15:00 36.3 C L 59 L 18 150/74 H 96 05/07/22 14:45 52 L 14 129/77 97 05/07/22 14:30 49 L 14 144/72 H 94 05/07/22 14:20 36.5 C 45 L 14 144/72 H 98 05/07/22 14:10 51 L 14 150/77 H 97 05/07/22 14:00 54 L 14 151/73 H 97 05/07/22 13:50 62 14 121/78 99 05/07/22 13:40 36.3 C L 57 L 18 129/65 96 Intake and Output 05/07/22 05/08/22 05/08/22 22:59 06:59 14:59 Intake Total 1254 / 3638 884 / 3638 1000 / 1000 Output Total 172 / 347 100 / 347 Balance 1082 / 3291 784 / 3291 1000 / 1000 Intake: IV 594 / 1578 884 / 1578 1000 / 1000 Clindamycin 60 0 mg In Dextrose 54 / 108 54 / 108 5% 50 ml @ 100 mls/hr IV Q8H JANE Rx#:[id number] Sodium Chlorid e 0.9% 1000ML 1, 830 / 830 1000 / 1000 000 ml @ 100 m ls/hr IV .Q10H JANE Rx#:[id number] Vancomycin HCl 2,000 mg In 540 / 540 Sodium Chlorid e 0.9% 500 ml @ 200 mls/hr IV PREOP JANE Rx#: [id number] Oral 660 / 660 Output: Urine 2 / 2 Drain Output 170 / 330 100 / 330 Left Knee Hemo vac 170 / 330 100 / 330 Other: # Unmeasured Voi ds 1 Weight 170.097 kg Constitutional: WD/WN, vitals as above Musculoskeletal: Left Leg: NVDI, calf SNT, negative sara sign. DP palpable, able to wiggle toes/ankle movement without difficulty. dressing clean dry and intact. Results & Data ([facility]) Vital Signs (Past 12 Hours) Vital Signs Temp Pulse Pulse Resp BP BP Pulse Ox 05/08/22 07:27 36.4 C L 55 L 18 115/70 98 05/08/22 04:58 36.8 C 55 L 19 134/89 97 05/07/22 22:17 36.6 C 56 L 18 116/65 96 Laboratory Results Laboratory Results WBC 13.27 K/uL (4.8-10.8) H 05/08/22 05:26 RBC 3.88 M/uL (4.7-6.1) L 05/08/22 05:26 Hgb 11.5 g/dL (14.0-18.0) L 05/08/22 05:26 Hct 34.8 % (42-52) L 05/08/22 05:26 MCV 89.7 fL (80-100) 05/08/22 05:26 MCH 29.6 pg (25-34) 05/08/22 05:26 MCHC 33.0 g/dL (32-36) 05/08/22 05:26 RDW Std Deviation 45.4 fL (36.4-46.3) 05/08/22 05:26 RDW Coeff of Sandoval 13.8 % (11.5-14.5) 05/08/22 05:26 Plt Count 228 K/uL (130-400) 05/08/22 05:26 MPV 9.8 fL (7.4-10.4) 05/08/22 05:26 Sodium 134 mmol/L (136-145) L 05/08/22 05:26 Potassium 4.4 mmol/L (3.5-5.1) 05/08/22 05:26 Chloride 104 mmol/L (98-107) 05/08/22 05:26 Carbon Dioxide 24 mmol/L (21-32) 05/08/22 05:26 Anion Gap 6 (3-11) 05/08/22 05:26 BUN 21 mg/dl (6-23) 05/08/22 05:26 Creatinine 1.12 mg/dl (0.6-1.4) 05/08/22 05:26 Est Cr Clr Drug Dosing 112.3 ml/min 05/08/22 05:26 Est GFR ( Amer) 83.5 ml/min 05/08/22 05:26 Est GFR (Non-Af Amer) 72.0 ml/min 05/08/22 05:26 BUN/Creatinine Ratio 18.8 (10-20) 05/08/22 05:26 Glucose 141 mg/dl (70-99(Fasting)) H 05/08/22 05:26 Calcium 8.2 mg/dl (8.5-10.1) L 05/08/22 05:26 SARS-CoV-2, RNA, NAAT NEGATIVE (NEGATIVE) 05/07/22 08:33 Impressions Knee X-Ray 05/07/22 13:46 XR knee LT 1 or 2V routine CLINICAL HISTORY: Postoperative evaluation. COMPARISON: None FINDINGS: Alignment of the total left knee arthroplasty is anatomic. There is no periprosthetic fracture or unexpected radiopaque foreign body. Surgical drains are in place. IMPRESSION: Expected findings following total left knee arthroplasty. ACT 112: Negative or not required by law. Electronically signed by: Eh Del Real M.D. 05/07/2022 2:24 PM
--- NOTE | 2022-05-08 09:15 | Discharge Summary ---
Date of Service date of discharge: May 08, 2022 date of admission: 05-07-22 Admission HPI Per Admitting Provider Pierce is a 56 year old male who complains of left knee pain, presents for pre- op evaluation prior to a left total knee replacement by Dr Farnsworth at [facility], [place]. He complains of pain, decreased range of motion, instability and stiffness in his left knee. Currently the patient states that the symptoms are moderate-severe and rated as 7/10. The pain is described as aching, sharp and throbbing. His symptoms are aggravated by ascending stairs, daily activities, first steps while awake walking. He has been treated with previous cortisone and visco injections in the past without much relief. he is also s/p right TKA approximately 2 years ago. Principal Diagnosis left knee arthritis Discharge Exam Vital Signs Temp Pulse Pulse Resp BP BP Pulse Ox 05/08/22 07:27 36.4 C L 55 L 18 115/70 98 05/08/22 04:58 36.8 C 55 L 19 134/89 97 05/07/22 22:17 36.6 C 56 L 18 116/65 96 05/07/22 19:08 36.4 C L 75 20 128/75 95 05/07/22 18:00 36.6 C 56 L 18 158/65 H 96 05/07/22 17:00 36.4 C L 55 L 18 162/72 H 96 05/07/22 16:06 36.3 C L 49 L 20 154/68 H 97 05/07/22 15:30 36.3 C L 56 L 18 130/69 96 05/07/22 15:00 36.3 C L 59 L 18 150/74 H 96 05/07/22 14:45 52 L 14 129/77 97 05/07/22 14:30 49 L 14 144/72 H 94 05/07/22 14:20 36.5 C 45 L 14 144/72 H 98 05/07/22 14:10 51 L 14 150/77 H 97 05/07/22 14:00 54 L 14 151/73 H 97 05/07/22 13:50 62 14 121/78 99 05/07/22 13:40 36.3 C L 57 L 18 129/65 96 Intake and Output 05/07/22 05/08/22 05/08/22 22:59 06:59 14:59 Intake Total 1254 / 3638 884 / 3638 1000 / 1000 Output Total 172 / 347 100 / 347 Balance 1082 / 3291 784 / 3291 1000 / 1000 Intake: IV 594 / 1578 884 / 1578 1000 / 1000 Clindamycin 600 mg In Dextrose 54 / 108 54 / 108 5% 50 ml @ 100 mls/hr IV Q8H JANE Rx#:[id number] Sodium Chloride 0.9% 1000ML 1, 830 / 830 1000 / 1000 000 ml @ 100 mls/hr IV .Q10H JANE Rx#:[id number] Vancomycin HCl 2,000 mg In 540 / 540 Sodium Chloride 0.9% 500 ml @ 200 mls/hr IV PREOP JANE Rx#: [id number] Oral 660 / 660 Output: Urine 2 / 2 Drain Output 170 / 330 100 / 330 Left Knee Hemovac 170 / 330 100 / 330 Other: # Unmeasured Voids 1 Weight 170.097 kg Constitutional WD/WN, vitals as above no acute distress Gastrointestinal (Abdomen) normal bowel sounds, soft, nontender, no hepatosplenomegaly Musculoskeletal LEFT KNEE: NVDI, calf SNT, negative sara sign. DP palpable, able to wiggle toes/ankle movement without difficulty. EZRA dressing clean dry and intact. Discharge Data Allergies Allergy/AdvReac Type Severity Reaction Status Date / Time coconut Allergy Intermediate Hives Verified 05/07/22 08:43 Penicillins Allergy Intermediate SEVERE Verified 05/07/22 08:43 DIARRHEA and HIVES Procedures Performed Operation Date: 05/07/22 10:55 Actual Procedures p Left Total Knee Arthroplasty(Left) - Nithin Farnsworth DO Ordered Studies 05/07/22 11:00 US - OR guided needle placemen Stat Hospital Course (1) History of total left knee replacement: POD #1 s/p Left TKA pt/ot dvt proph with SANTOS/SCD/ASA plan for d/c home with HHPT after PT today Total Time Total Time Spent Total Time Spent (In Minutes): 20 Discharge Plan Discharge Items Patient Disposition: Home - Home Health Services Reason For Visit: Left Knee Osteoarthritis Discharge Diagnosis: LEFT TOTAL KNEE REPLACEMENT Condition on Discharge: Good Activity: Per Instructions section Lifting: Wait until after follow-up appointment Weightbearing Comment: wbat with walker Non-emergency contact: Surgeon Call non-emergency contact if: you have any medication questions, your temperature is above 101, your wound has increased redness, your wound has increased drainage and your wound pain has increased Follow-up/Referrals: Zhang David, [Primary Care Provider] - Diet: Regular Addtl Attending Provider Instructions: ACTIVITY RECOMMENDATIONS: SELF CARE INSTRUCTIONS AFTER TOTAL KNEE REPLACEMENT A. You may need to continue a physical therapy program after discharge from the hospital. There are several options available to you. Your doctor will assist you in selecting the best one for you. 1. An out-patient facility 2 to 3 times a week for therapy or home therapy. 2. Continue working on all exercises taught to you in the hospital. Your goals should be to increase bending of your knee to 90 degrees and beyond and to fully straighten your knee. B. You may progress at your own pace from walking with a walker or crutches to a cane; then to no assistive devices. C. Make walking a part of your daily routine. Be up as much as comfortable with rest periods throughout the day. Rest with leg elevation is very important. Use the ice wrap frequently for the first 3-4 weeks. D. There are no restrictions on activities. You may ride in a car, shop, participate in central station operator and all social activities. E. Wear the long elastic stockings (SANTOS hose) 20 hours a day for 2 weeks after surgery. They can be removed several times a day for laundering and for a bath. F. You may shower, no tub baths until cleared by your doctor. SPECIAL CARE INSTRUCTIONS: VERY IMPORTANT TO READ AND REVIEW A. There are a few signs you need to watch for after you are home. Call [facility] [place] if you notice any of the followin. Increased severe knee pain. Some pain is expected especially when you exercise. 2. Increased swelling in your leg or knee; pain or swelling of the calf mu scle in either lower leg. 3. Any fluid drainage from the incision. 4. Shortness of breath or chest pain. B. Please call [facility] [place] at if you have any concerns or questions about your operation or recovery. The doctor or his nurse will return your call promptly. C. You must take antibiotics before dental work, bladder, bowel or other surgery. Your doctor will provide you with a permanent care to carry describing this precaution. IMPORTANT: * REMEMBER TO TAKE ASPIRIN, 81 MG, TWICE DAILY FOR 4 WEEKS UNLESS OTHERWISE DIRECTED. THIS IS YOUR BLOOD THINNER. * HIGH RISK PATIENTS MAY BE PRESCRIBED A STRONGER BLOOD THINNER. THIS WILL BE PROVIDED AT DISCHARGE. * CALL IF INCREASED PAIN, REDNESS, DRAINAGE OR FEVER GREATER THAT 101. * WEAR SANTOS HOSE 20 HOURS PER DAY FOR 2 WEEKS. * EZRA Dressing- This is a large suction dressing covering your incision. This will help pull any excess drainage from the wound and allow your incision to heal properly. You may shower with this if you can keep the unit outside of the shower. If any bleeding or leakage is noted please call your doctor's office. This will remain on your incision for 7 days and then should be removed. This can be done yourself or by the home nursing staff if applicable. The entire unit is disposable once removed. Once removed, keep incision clean and dry. If redness or drainage is noted, please call your surgeon. ONCE EZRA IS REMOVED: DERMABOND Prineo- This is a mesh tape dressing that is covered with glue. It should remain in place until the incision is properly healed, usually 10-14 days. This dressing is designed to naturally slough off. You may trim the excess mesh tape as it peels off. Incision may be briefly wet in a shower. Dry immediately by blotting with a clean, dry towel. Do not bath or swim until instructed by your doctor. Do not scratch, rub, or pick at the dressing. Do not apply any topical ointments or lotions until dressing is completely removed and/or instructed by your doctor. There may be a small piece of suture material at one end of your incision. Do not pull or trim this. If it is bothersome or catching on clothing, you may cover it with a band-aid. IF INCISION IS LEAKING THROUGH DRESSING, CALL THE OFFICE . FOLLOW UP VISIT: If appointment is not already scheduled: Please call [facility] [place] to make a follow-up appointment for 2 weeks after your surgery at . Pending Studies at Discharge: No Stand-Alone Forms: [employer], Smoking Cessation Medications and DC Order Prescriptions: New acetaminophen [Tylenol Extra Strength] 500 mg Tablet 1,000 mg PO Q8 21 Days Qty: 126 RF: 0 celecoxib [Celebrex] 200 mg Capsule 200 mg PO BID 30 Days Qty: 60 RF: 0 aspirin 81 mg Tablet,Delayed Release (Dr/Ec) 81 mg PO BID 30 Days Qty: 60 RF: 0 oxycodone 5 mg Tablet 5 - 10 mg PO Q6H PRN (Reason: pain) Qty: 30 RF: 0 docusate sodium 100 mg Capsule 100 mg PO BID 10 Days Qty: 20 RF: 0 clindamycin HCl 300 mg capsule 300 mg PO TID 7 Days Qty: 21 RF: 0 Continued atorvastatin [Lipitor] 10 mg Tablet 10 mg PO QPM RF: 0 Discharge Orders: Discharge Order (Routine); Ordered 05/08/22 Ordered By: Christofer Marroquin Admission Data Admit Date/Time: 05/07/22 13:46 Attending Provider: Nithin Farnsworth Admit Provider: Nithin Farnsworth Primary Care Provider: Zhang David
[2022-05-08] MEDS ORDERED: TRANEXAMIC ACID 1,000 MG **IV Pre-op IV SCH (11:15)
[2022-05-08] MEDS ORDERED: TRANEXAMIC ACID 1,000 MG **IV Intra-op IV SCH (11:15)
== END 2022-05-08 13:44 | disposition home health service (06) | DRG 470 ==
LOC: ASU 08:15 → 3N 13:46

== ENCOUNTER 2024-02-23 07:25 | Observation (INO) ==
--- NOTE | 2024-02-23 07:34 | Emergency Department Note ---
History of Present Illness General Chief complaint: Flank Pain Stated complaint: SEVERE PAIN RIGHT SIDE Time Seen by Provider: 02/23/24 07:33 History of Present Illness Maximum Pain Intensity: 7 This is a 58-year-old male that presents to the emergency department via private vehicle with complaints of "right flank pain". The patient notes that about 3 weeks ago he had some aches throughout his body and left calf pain. Since that time he has had 2 negative left lower extremity Doppler ultrasounds as well as a normal echocardiogram of the heart. Then he notes beginning this past Friday he had rather improvement of symptoms but now right flank pain. It has worsened overnight prompting his arrival here today. He denies any history of similar. Current pain 06/02. No chest pain or shortness of breath at the present time. Home Medications Medication Instructions Recorded Confirmed Type atorvastatin 10 mg tablet (Lipitor) 10 mg PO QPM #90 tabs 08/26/23 02/23/24 Rx ibuprofen 200 mg tablet 400 mg PO Q6H PRN Pain 02/23/24 02/23/24 History Allergies Allergy/AdvReac Type Severity Reaction Status Date / Time coconut Allergy Intermediate Hives Verified 02/23/24 09:51 Penicillins Allergy Intermediate SEVERE Verified 02/23/24 09:51 DIARRHEA and HIVES Past Med/Surg History Medical History Prediabetes Morbid obesity Pulmonary hypertension RVSP 38 mmHg on 2019 echo White coat syndrome with hypertension Osteoarthritis Hyperlipidemia Surgical History History of total left knee replacement (04/2022) S/P trigger finger release History of total knee replacement RT 05/02/20: SAB L3-L4 x 1 attempt + PNB. No postop issues per anesthesia progress note. [facility] [employer] journey 2 patient matched total knee arthroplasty size 8 femur size 7 tibia with an 18 x 100 mm stem 12 mm polyethylene high flex 35 oval patella History of total right knee replacement (04/2020) History of arthroscopy RT KNEE H/O knee surgery LEFT KNEE D/T INFECTION Hx of vasectomy History of colonoscopy Hx of oral surgery History of tonsillectomy Family History Brother Diabetes Grandmother (Maternal) Diabetes Mother Stomach cancer Hypertension Father Diabetes Hypertension Other No family history of adverse response to anesthesia Denies family history of Ovarian cancer Prostate cancer Breast cancer Colorectal cancer Social History Smoking Status: Never smoker Second Hand Exposure: No; Do You Dip or Chew Tobacco: No; Tobacco Cessation Education Requested by Patient: No Hx Alcohol Use: Yes Alcohol type: beer Hx Substance Use: No Preferred Language: Micronesian Communication Ability: Effective Visual Impairment: No Limitations Hearing Ability: Normal 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 Research 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 Required: No Beliefs That Will Affect Care: None marital status: Current Living Situation: Spouse current occupational status: retired 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 Other Information That Helps Us Care for You: No Feels Safe at Home: Yes Diet: regular Diet Comment: regular caffeine: Yes during the past year weight has: remained stable Dental Care, Regularly: Yes Physical Activity Frequency: Daily Seatbelt Use: always Sunscreen Use: Yes Assistive Devices: CPAP and Glasses Review of Systems A total of 10 systems reviewed and were otherwise negative Physical Exam Vital Signs Vital Signs - 24 hr 02/23/24 07:29 02/23/24 09:53 02/23/24 09:53 Temperature 36.2 C L Temperature Source Temporal Artery Scan Pulse Rate 63 54 L Pulse Rate [Right Finger] Pulse Rate from SpO2 Sensor 53 L Pulse Rhythm Regular Pulse Strength Normal Respiratory Rate 20 22 Respiratory Effort / Characteristics Non-Labored Spontaneous Respiratory Depth Normal Respiratory Pattern Regular Blood Pressure 199/97 H 190/95 H Blood Pressure [Right Arm] Blood Pressure Mean 131 133 Blood Pressure Mean [Right Arm] Blood Pressure Position Sitting Blood Pressure Position [Right Arm] Pulse Oximetry 97 97 Oxygen Delivery Method Room Air Sepsis Recent Fever Within 48 Hours No Sepsis New/Unexplained Change in Mental Status No Sepsis Action Taken by Nursing No Action Required 02/23/24 09:55 02/23/24 10:00 02/23/24 10:00 Temperature Temperature Source Pulse Rate 53 L 49 L Pulse Rate [Right Finger] Pulse Rate from SpO2 Sensor 50 L Pulse Rhythm Pulse Strength Respiratory Rate 15 Respiratory Effort / Characteristics Respiratory Depth Respiratory Pattern Blood Pressure 181/85 H Blood Pressure [Right Arm] Blood Pressure Mean 127 Blood Pressure Mean [Right Arm] Blood Pressure Position Blood Pressure Position [Right Arm] Pulse Oximetry 97 Oxygen Delivery Method Sepsis Recent Fever Within 48 Hours Sepsis New/Unexplained Change in Mental Status Sepsis Action Taken by Nursing 02/23/24 11:00 02/23/24 11:02 02/23/24 11:33 Temperature Temperature Source Pulse Rate 47 L Pulse Rate [Right Finger] 98 H Pulse Rate from SpO2 Sensor 49 L Pulse Rhythm Pulse Strength Respiratory Rate 28 H Respiratory Effort / Characteristics Respiratory Depth Respiratory Pattern Blood Pressure 164/85 H Blood Pressure [Right Arm] 171/80 H Blood Pressure Mean 119 Blood Pressure Mean [Right Arm] 110 Blood Pressure Position Blood Pressure Position [Right Arm] Sitting Pulse Oximetry 98 Oxygen Delivery Method Sepsis Recent Fever Within 48 Hours Sepsis New/Unexplained Change in Mental Status Sepsis Action Taken by Nursing 02/23/24 11:33 02/23/24 11:44 02/23/24 12:00 Temperature Temperature Source Pulse Rate 47 L 48 L Pulse Rate [Right Finger] Pulse Rate from SpO2 Sensor 48 L 48 L Pulse Rhythm Pulse Strength Respiratory Rate 17 20 Respiratory Effort / Characteristics Respiratory Depth Respiratory Pattern Blood Pressure Blood Pressure [Right Arm] 164/85 H Blood Pressure Mean Blood Pressure Mean [Right Arm] 111 Blood Pressure Position Blood Pressure Position [Right Arm] Pulse Oximetry 97 97 Oxygen Delivery Method Sepsis Recent Fever Within 48 Hours Sepsis New/Unexplained Change in Mental Status Sepsis Action Taken by Nursing 02/23/24 12:00 Temperature Temperature Source Pulse Rate Pulse Rate [Right Finger] Pulse Rate from SpO2 Sensor Pulse Rhythm Pulse Strength Respiratory Rate Respiratory Effort / Characteristics Respiratory Depth Respiratory Pattern Blood Pressure 176/82 H Blood Pressure [Right Arm] Blood Pressure Mean 125 Blood Pressure Mean [Right Arm] Blood Pressure Position Blood Pressure Position [Right Arm] Pulse Oximetry Oxygen Delivery Method Sepsis Recent Fever Within 48 Hours Sepsis New/Unexplained Change in Mental Status Sepsis Action Taken by Nursing VITAL SIGNS - Vital signs and nursing notes were reviewed. Stable and afebrile. GENERAL - 58-year-old male appearing his stated age who is in no acute distress. Communicates well with provider and answers questions appropriately. SKIN - Without rashes. HEAD - NC/AT. EYES - PERRL with EOMI bilaterally. Sclera anicteric. EARS - No deformities of external structures noted on gross examination bilaterally. NOSE - Midline and without cyanosis. No epistaxis or purulent drainage noted. MOUTH/OROPHARYNX - Without perioral cyanosis. NECK - Neck with FROM. No nuchal rigidity. LUNGS - Chest wall symmetric without accessory muscle use, intercostals retractions, or central cyanosis. Normal vesicular breath sounds CTA B/L. No wheezes, rales, or rhonchi appreciated. CARDIAC - RRR with S1/S2. No murmur, rubs, or gallops appreciated. ABDOMEN - Abdominal contour normal without pulsations or visible masses. BS normoactive all four quadrants. No tenderness, palpable masses, hepatosplenomegaly, or ascites noted. The right flank region just inferior to the ribs is tender to palpation without overlying integument change EXTREMITIES - No clubbing or peripheral cyanosis. +5/5 strength noted in UE/LE bilaterally. NEUROLOGIC - Cranial nerves II through XII grossly intact. PSYCH - A&O, and cooperates fully with examiner. Pt is very pleasant and interacts well with examiner. Course Administered Medications Enoxaparin Sodium (Enoxaparin Inj 40 Mg/0.4 Ml Syr) 40 mg SQ Q12H JANE Stop: 03/24/24 20:59 Last Admin: 02/23/24 20:27 Dose: Not Given Documented By: NUNO Lactated Ringer's (Lr) 1,000 mls @ 125 mls/hr IV .Q8H JANE Stop: 03/24/24 16:09 Last Admin: 02/23/24 16:28 Dose: 125 mls/hr Documented By: RISHI Insulin Aspart (Insulin Aspart Per Unit Charge) 0 units SC ACHS JANE Stop: 03/24/24 16:29 Last Admin: 02/23/24 20:55 Dose: Not Given Documented By: Admin: 02/23/24 17:26 Dose: Not Given Documented By: RISHI Co-signed By: LOGAN Discontinued Medications Pantoprazole Sodium 40 mg/ (Syringe) 10 mls @ 5 mls/min IV NOW ONE Stop: 02/23/24 10:49 Last Admin: 02/23/24 11:30 Dose: 5 mls/min Documented By: AVA Ioversol (Optiray 320 100ml) 94 ml IV ONCE ONE Stop: 02/23/24 09:42 Last Admin: 02/23/24 09:41 Dose: 94 ml Documented By: AMELIA Medical Decision Making Laboratory Data 02/23/24 08:26 02/23/24 08:26 Lab Results 02/23/24 02/23/24 Range/Units 08:26 13:13 WBC 5.88 (4.8-10.8) K/ul RBC 3.74 L (4.70-6.10) M/uL Hgb 11.0 L (14.0-18.0) g/dl Hct 33.3 L (42.0-52.0) % MCV 89.0 (80.0-100.0) fL MCH 29.4 (25.0-34.0) pg MCHC 33.0 (32.0-36.0) g/dL RDW Std Deviation 40.9 (36.4-46.3) fL RDW Coeff of Sandoval 12.4 (11.5-14.5) % Plt Count 208 (130-400) K/uL MPV 9.9 (9.4-12.4) fL Immature Gran % (Auto) 0.7 % Neut % (Auto) 63.3 % Lymph % (Auto) 23.5 % [place] % (Auto) 10.0 % Eos % (Auto) 2.0 % Baso % (Auto) 0.5 % Neut # (Auto) 3.72 (1.40-6.50) K/uL Lymph # (Auto) 1.38 (1.20-3.40) K/uL [place] # (Auto) 0.59 (0.11-0.59) K/uL Eos # (Auto) 0.12 (0.00-0.50) K/uL Baso # (Auto) 0.03 (0.00-0.20) K/uL Immature Gran # (Auto) 0.04 (0.01-0.20) K/uL ESR > 130 H (0-20) mm/hr Sodium 136 (136-145) mmol/L Potassium 4.5 (3.5-5.1) mmol/L Chloride 106 (98-107) mmol/L Carbon Dioxide 22 (21-32) mmol/L Anion Gap 8 (3-11) BUN 28 H (6-23) mg/dl Creatinine 1.29 (0.6-1.4) mg/dl Est Cr Clr Drug Dosing 96.6 ml/min Est GFR ( Amer) 69.4 ml/min Est GFR (Non-Af Amer) 59.9 ml/min BUN/Creatinine Ratio 21.7 H (10-20) Glucose 117 H (70-99(Fasting)) mg/dl Calcium 8.7 (8.6-10.3) mg/dl Total Bilirubin 0.9 (0.2-1.0) mg/dl AST 15 (13-39) U/L ALT 18 (7-52) U/L Alkaline Phosphatase 66 (34-104) U/L Lactate Dehydrogenase 211 (86-244) U/L Total Creatine Kinase 103 (30-223) U/L Troponin I High Sens 8.0 (0-20) pg/ml C-Reactive Protein 8.20 H (0-0.5) mg/dl Total Protein 7.1 (6.0-8.3) gm/dl Albumin 3.4 (3.4-5.0) gm/dl Globulin 3.7 (2.5-4.0) gm/dl Albumin/Globulin Ratio 0.9 (0.9-2) Anaplasma Smear See Comment Babesia Smear See Comment Lyme Disease Screen Negative (Negative) Monoscreen Negative (Negative) Imaging Data Radiologist's Impression: Abdomen/Pelvis CT 02/23/24 08:[address] WITH IV CONTRAST CT DOSE: 1538.59 mGy.cm HISTORY: Acute right-sided flank pain R flank pain TECHNIQUE: Multiaxial CT images of the abdomen and pelvis were performed following the IV administration of 94 cc of Optiray, A dose lowering technique was utilized adhering to the principles of ALARA. COMPARISON STUDY: None. FINDINGS: The heart is upper limits of normal in size. Clear lung bases. No free air. The liver is enlarged measuring up to 23 cm. Hepatic steatosis. No evidence of cirrhosis. The spleen measures 14 cm. Unremarkable gallbladder. Patency of the hepatic and portal veins. Unremarkable pancreas and adrenal glands. Cortical thinning with mild atrophy of the left kidney measuring 9.4 cm in length with areas of cortical scarring. Mild right greater than left bilateral perinephric stranding. No hydronephrosis. Decompressed urinary bladder with wall thickening. Prostate is upper limits of normal in size. Retroaortic left renal vein. Atherosclerosis of the aorta without aneurysm. No lymphadenopathy. Small hiatal hernia. There is equivocal wall thickening at the pylorus and proximal duodenum. No bowel obstruction. Noninflamed appendix. Tiny fat filled umbilical hernia. Scattered subcentimeter sclerotic foci which are most pronounced in the pelvis and proximal femora. No acute fracture. IMPRESSION: 1. No bowel obstruction or pneumoperitoneum. 2. Equivocal wall thickening within the pylorus/proximal duodenum could be correlated with endoscopy if of further clinical concern. 3. Hepatosplenomegaly with hepatic steatosis. 4. Mild atrophy with scarring of the left kidney. 5. Numerous subcentimeter sclerotic foci, most pronounced in the bony pelvis and proximal femora are nonspecific, possibly representing osteopoikilosis. Correlate with prior imaging. ACT 112: Negative or not required by law. The above report was generated using voice recognition software. It may contain grammatical, syntax or spelling errors. Electronically signed by: Bassem Rivers M.D. 02/23/2024 10:13 AM Chest X-Ray 02/23/24 13:08 XR chest 1V portable HISTORY: 58 years-old Male R flank pain acute chest and right-sided flank pain COMPARISON: 04/05/2022 TECHNIQUE: AP view of the chest FINDINGS: Cardiac silhouette is enlarged. No pneumothorax, pleural effusion or airspace consolidation. Bones appear grossly intact. Spondylotic spurring of the spine. IMPRESSION: No acute process. ACT 112: Negative or not required by law. The above report was generated using voice recognition software. It may contain grammatical, syntax or spelling errors. Electronically signed by: Bassem Rivers M.D. 02/23/2024 2:22 PM Renal Artery Duplex 02/23/24 13:25 US duplex renal artery CLINICAL HISTORY: renal atrophy, HTN TECHNIQUE: Real-time grayscale and color and spectral Doppler ultrasound imaging of the kidneys was performed. Comparison: None available at the time of this dictation. FINDINGS: Right kidney measures 13.6 cm. Left kidney measures 11.1 cm. RIGHT: The right kidney is normal in size, contour, cortical thickness, and echogenicity. No hydronephrosis is identified. No renal lesion is identified. Spectral analysis: Intrarenal resistive indices measure up to 0.66. Waveforms are normal in appearance.. Renal artery velocities and waveforms are normal. Renal vein patent. LEFT: The left kidney is normal in size, contour, cortical thickness and echogenicity. No hydronephrosis is identified. No renal lesion is identified. Spectral analysis: Intrarenal resistive indices measure up to 0.66. Waveforms are normal in appearance. Renal artery velocities and waveforms are normal. Renal vein patent. Abdominal aorta: Patent. Peak systolic velocity 134 cm/s. Bladder: Normal. Bilateral ureteral jets present. Reference ranges: Normal main renal artery peak systolic velocity less than 180 cm/s. Ratio of renal artery PSV to aortic PSV less than 3.5 equates to normal or less than 60% stenosis. Only one of the two criteria listed needs to be met for diagnosis. Arcuate resistive indices about 0.8 are elevated. IMPRESSION: No evidence of renal artery stenosis. ACT 112: Negative or not required by law. Electronically signed by: Clinton Adrian M.D. 02/23/2024 3:35 PM MDM Narrative Patient was seen and evaluated as above in room C04. Review was performed of triage nursing notes and vital signs. I did thoroughly review his previous outpatient record. After obtaining a thorough history and physical examination the above work up was performed. Patient presents to us today for assessment of right flank pain in the setting of proceeding pain throughout the abdomen area and body aches. He has had a negative echo and Doppler study of left lower extremity x 2 in the recent past. The patient on assessment does have reproducible right flank pain. He also was bradycardic on arrival. Options of care were discussed with the patient. IV access was established. Labs were drawn. There is no leukocytosis. Minor anemia noted with hemoglobin at 11 which has dropped almost 3 points over the past 2 weeks. The patient's metabolic panel reveals mild elevation of BUN at 28. Hyperglycemia noted 117. Troponin within normal range. Urinalysis reveals 3+ blood, without distinct evidence of infection. A CT scan was obtained of the patient's abdomen/pelvis noting the right flank pain with results as above. The radiologist does comment that the patient does not have any findings to suggest bowel obstruction or pneumoperitoneum. Equivocal wall thickening within the pylorus/proximal duodenum could be correlated with endoscopy or if further clinical concern. Other incidentals are noted which I reviewed with the patient. Abnormal GI findings may be causing some of the patient's discomfort, and will note that he was recently on oral doxycycline and has been taking ibuprofen. Furthermore there is a hemoglobin drop that is unexplained over the past few weeks. IV Protonix ordered. A rectal examination was performed after obtaining consent in the presence of TEREZA Dsos. No obvious blood. No hemorrhoids. No fissure. Hemoccult negative. An EKG was obtained noting the patient's persistent bradycardia revealing sinus bradycardia rate of 46 bpm. QTc 378. QRS 100. This was compared to the previous EKGs in the patient's EMR. At this time in the setting of the patient's right-sided abdominal pain and hemoglobin decrease that is unexplained over the past few weeks with additional symptoms, at this time we will trend the patient's laboratory studies and further evaluate in the inpatient setting. Patient amenable to this plan. Please refer to further documentation regarding his stay. GCS: 15 In the evaluation and treatment of this patient the following differential diagnoses were entertained: UTI, kidney stone, shingles, PE, dissection, rib fracture, flank contusion, retroperitoneal bleed, acute cholecystitis, appendicitis, diverticulitis, malignancy, GI bleed, among others Impression & Plan Acute right flank pain, Hematuria, Hepatosplenomegaly, Bradycardia, Hemoglobin decreased Discharge Plan Visit Data Chief Complaint: Flank Pain Stated Complaint: SEVERE PAIN RIGHT SIDE ED Provider: Kelley Hatch ED Midlevel Provider: Zion Mercado Discharge Problem: Acute right flank pain, Hematuria, Hepatosplenomegaly, Bradycardia, Hemoglobin decreased Patient Disposition: Admitted As Inpatient Condition: Good Discharge Instructions Interventions: ED Discharge Assessment Last Done: 02/23/24 15:05
[2024-02-23 08:41] LABS: Basophils # (auto) 0.03 K/uL (0.00-0.20); Basophils % (auto) 0.5 %; Eosinophils # (auto) 0.12 K/uL (0.00-0.50); Hematocrit (blood only) 33.3 % (42.0-52.0); Immature Granulocytes # (auto) 0.04 K/uL (0.01-0.20); Immature Granulocytes % (auto) 0.7 %; Lymphocytes # (auto) 1.38 K/uL (1.20-3.40); Lymphocytes % (auto) 23.5 %; Mean Corpuscular Hemoglobin 29.4 pg (25.0-34.0); Mean Platelet Volume 9.9 fL (9.4-12.4); Monocytes # (auto) 0.59 K/uL (0.11-0.59); Neutrophils # (auto) 3.72 K/uL (1.40-6.50); Neutrophils % (auto) 63.3 %; Platelet Count 208 K/uL (130-400); RDW Coefficient of Variation 12.4 % (11.5-14.5); RDW Standard Deviation 40.9 fL (36.4-46.3); Red Blood Count 3.74 M/uL (4.70-6.10); White Blood Count 5.88 K/ul (4.8-10.8)
[2024-02-23 09:05] LABS: Albumin Globulin Ratio 0.9 (0.9-2); Albumin Level 3.4 gm/dl (3.4-5.0); BUN Creatinine Ratio 21.7 (10-20); Bilirubin,Total 0.9 mg/dl (0.2-1.0); Calcium 8.7 mg/dl (8.6-10.3); Creatinine Clr Calc Pharmacy 96.6 ml/min; Est GFR (African American) 69.4 ml/min; Est GFR (Non-African American) 59.9 ml/min; Globulin 3.7 gm/dl (2.5-4.0); Potassium 4.5 mmol/L (3.5-5.1); Total Protein 7.1 gm/dl (6.0-8.3)
[2024-02-23] MEDS: OPTIRAY 320 100ml IV ONE (09:41)
--- NOTE | 2024-02-23 10:15 | CT Scan Report ---
ABDOMEN AND PELVIS CT WITH IV CONTRAST CT DOSE: 1538.59 mGy.cm HISTORY: Acute right-sided flank pain R flank pain TECHNIQUE: Multiaxial CT images of the abdomen and pelvis were performed following the IV administrat ion of 94 cc of Optiray, A dose lowering technique was utilized adhering to the principles of ALARA. COMPARISON STUDY: None. FINDINGS: The heart is upper limits of normal in size. Clear lung bases. No free air. The liver is en larged measuring up to 23 cm. Hepatic steatosis. No evidence of cirrhosis. The spleen measures 14 cm. Unremarkable gallbladder. Patency of the hepatic and portal veins. Unremarkable pancreas and adrenal glands. Cortical thinning with mild atrophy of the left kidney measuring 9.4 cm in length with areas of corti theresa scarring. Mild right greater than left bilateral perinephric stranding. No hydronephrosis. Decomp ressed urinary bladder with wall thickening. Prostate is upper limits of normal in size. Retroaortic left renal vein. Atherosclerosis of the aorta without aneurysm. No lymphadenopathy. Small hiatal hernia. There is equivocal wall thickening at the pylorus and proximal duodenum. No mathew l obstruction. Noninflamed appendix. Tiny fat filled umbilical hernia. Scattered subcentimeter sclero tic foci which are most pronounced in the pelvis and proximal femora. No acute fracture. IMPRESSION: 1. No bowel obstruction or pneumoperitoneum. 2. Equivocal wall thickening within the pylorus/proximal duodenum could be correlated with endoscopy if of further clinical concern. 3. Hepatosplenomegaly with hepatic steatosis. 4. Mild atrophy with scarring of the left kidney. 5. Numerous subcentimeter sclerotic foci, most pronounced in the bony pelvis and proximal femora are nonspecific, possibly representing osteopoikilosis. Correlate with prior imaging. ACT 112: Negative or not required by law. The above report was generated using voice recognition software. It may contain grammatical, syntax o r spelling errors. Electronically signed by: Bassem Rivers M.D. 02/23/2024 10:13 AM
[2024-02-23 11:28] LABS: Appearance Urine Clear (Clear); Bacteria Urine Automated Negative (Negative); Bilirubin Urine Negative (Negative); Blood Urine 3+ (Negative); Color Urine Yellow; Epithelial Cell Urine Auto 0-5 /lpf (0-5); Glucose Urine UA Negative (Negative); Ketones Urine Negative (Negative); Leukocyte Esterase Urine Negative (Negative); Nitrite Urine Negative (Negative); Protein Urine 2+ (Negative); RBC Urine Automated >30 /hpf (0-4); Specific Gravity Urine > 1.045 (1.000-1.030); Urobilinogen Urine Negative (Negative); pH Urine 5.5 (4.5-7.5)
[2024-02-23] MEDS: PANTOprazole 40 MG in SYRINGE 0 ML IV ONE (11:30)
--- NOTE | 2024-02-23 13:28 | History & Physical Report ---
Date of Service February 23, 2024 Assessment & Plan (1) Abdominal pain: Plan: Diffuse myalgias, flank pain, RLQ pain, right calf pain CT-A/P: CTA/P of the abdomen with contrast shows no evidence of obstruction or pneumoperitoneum, does show thickening of the pylorus and proximal duodenum? Duodenitis versus GERD/ulcer, hepatosplenomegaly with hepatic steatosis, atrophy with scarring of the left kidney, and numerous subcentimeter sclerotic foci in the bony pollicis nonspecific without prior imaging available for comparison. Normal stool burden. He has had normal lower extremity dopplers - No evidence of appendicitis. No evidence of cholecystitis. Has been stable on atorvastatin for many years. White blood cell count unremarkable, no transaminitis is present, no GUERA Lyme negative, afebrile in the ER Patient has been afebrile, but does endorse he has had some shaking and chills. He does not have leukocytosis and is not leukopenic. Blood cultures were drawn, no clear indication for antibiotics at time of admission. Duodenal thickening - w/ elevated BUN, no clincial GIB and negative FOB Hepatosplenomegaly with evaluation as noted below. Pt w/ duodenal/pyloric thickening --> PPI ordered, nonemergent GI followup for EGD (2) Hepatosplenomegaly: Plan: Hepatosplenomegaly Patient has no known history of this, reports he has not had a CT of his abdomen before Does have a history of sleep apnea Has a history of prediabetes, reports he has not had diabetes although this runs in his family. Transaminases and bilirubin are normal, no indication of biliary disease on CT No signs of acute hepatitis Denies GI bleeding, malabsorption, dysmotility, purpura, or neuropathy. Troponins were normal, echo was normal. Alk phos is normal. Total protein is not elevated, normal. Serum calcium was normal. Patient does have associated 2+ urine protein, hematuria, and pelvic sclerotic lesions, in addition to potential cardiac conduction change with new bradycardia? Amyloid, no restrictive cardiomyopathy was noted on echo. M protin/SPEP/UPEP have been orderedESR and CRP are markedly elevated, omer panel is pending (3) Hematuria: Plan: Hematuria CT with mild atrophy of the left kidney with cortical scarring, bilateral perinephric stranding. Prostate upper limit of normal in size 3+ hematuria redemonstrated on multiple UAs No evidence of stones or UTI Urology consulted (4) Prediabetes: Plan: - BSG daily, admitting glucose reasonable 117. Patient was previously on metformin however this was stopped as it was his only medication change prior to developing his current illness. SSI, type II DM diet (5) Sleep apnea: Plan: CPAP nightly (6) HLD (hyperlipidemia): Plan: Stable on atorvastatin for many years, CK is pending, low suspicion this is the cause of his symptoms (7) Bradycardia: Plan: Sinus bradycardia rates into the 40s on admission Patient reports he does not think he has a history of this. Lightheadedness, dizziness, syncope, presyncope Recent echo normal Patient does have chronotropic response when moving at bedside assessment Lyme test is pending Continue on PCU, atropine on-call if patient becomes symptomatic No ischemic changes on EKG, high-sensitivity troponin have been normal x 2 Plan DVT prophylaxis: Lovenox Disposition: PCU due to bradycardia Diet: Type II DM, CODE STATUS: Full code History of Present Illness Primary Care Provider: DO Pierce Hurst is a 58-year-old male who presents to the ER with myalgias, right flank pain, and generalized epigastric discomfort which has been progressively worsening and is currently a 7/10. He has had outpatient workup including a echo which showed grade 1 diastolic dysfunction and a normal EF of 60-65% with no wall motion abnormalities or evidence of effusion. In the ER was found to have a 3 point hemoglobin drop compared to his last baseline 1 month ago without melena or hematochezia and with a negative fecal occult blood. He does not have an GUERA, BUN is elevated at 28. UA is contaminated with epithelial cells, but also with 3+ blood. CTA/P of the abdomen with contrast shows no evidence of obstruction or pneumoperitoneum, does show thickening of the pylorus and proximal duodenum? Duodenitis versus GERD/ulcer, hepatosplenomegaly with hepatic steatosis, atrophy with scarring of the left kidney, and numerous subcentimeter sclerotic foci in the bony pollicis nonspecific without prior imaging available for comparison. Patient was discussed with the ER, due to overall poor clinical appearance, progressive pain and concern for potential GI bleed with elevated BUN, duodenal findings on CT, 3 point hemoglobin drop in 1 month patient was recommended for inpatient observation. 3 weeks ago had LEFT calf pain. That evening was 'shaking, wasn't cold but just kept shaking all over and had to keep peeing.' The following day developed diffuse aches. Back, abdomen, belly 'my whole fricken body ached.' Saw Dr. Moreno and was test for COVID/Flu which were negative. BSG was OK. Had recently started metformin 3 weeks prior, but didn't think it was a reaction from this but held it and has not taken that since. Sx have not improved. EKG at that time looked OK. Had a LE doppler to look for DVT which was normal. He developed some shortness of breath as well, ahd the ECHO but that was OK. Friday had a UA --> blood in the urine. Gradually felt a little better but not much. Repeat doppler with NO evidence of DVT. Was placed on antibiotics for possible cellulitis due to the calf still hurting. Did not help his sx. Repeat UA showed 3+ blood --> Was referred to have a CT scan and see urology. Yesterday 'I felt much worse' diffuse body aches, no energy, no appetite, no nausea/vomiting, no diarrhea/melena/hematochezia. Has some constipation at baseline, but no change in normla bowel regimen. Friday felt initially a little better in the morning, and then after dinner had R flank pain and woke up at midnight ~10pm with worsened RLQ quadrant pain whihc was persistent. --> ER. Did not start to fade until about an hour ago. Worse with laying/pressure, better with rest. No night sweats. +chills/shakes as noted. Pt denies history of FL, CHF. Bradycardia is new Pt reports he had a tick bite last year on his R knee last year and was on prophylactic doxy No Fhx DVT. Pt did have a history of LEFT DVT 20 years ago in the setting of an infection. Was not on a blood thinner, recovered with antibiotics and aspirin. FHX: Not sure about fathers hx thinks HTN, Mother with HTN but nO FL. Medical History: Reviewed Medications: Reviewed Surgical History: Reviewed Family history: Reviewed Allergies: Reviewed Social History: Etoh intermittently with golf, none in new years. No tobacco Code Status: Full Allergies Allergy/AdvReac Type Severity Reaction Status Date / Time coconut Allergy Intermediate Hives Verified 02/23/24 09:51 Penicillins Allergy Intermediate SEVERE Verified 02/23/24 09:51 DIARRHEA and HIVES Home Medications Medication Instructions Recorded Confirmed Type atorvastatin 10 mg tablet (Lipitor) 10 mg PO QPM #90 tabs 08/26/23 02/23/24 Rx ibuprofen 200 mg tablet 400 mg PO Q6H PRN Pain 02/23/24 02/23/24 History Past Med/Surg History Medical History Prediabetes Morbid obesity Pulmonary hypertension RVSP 38 mmHg on 2019 echo White coat syndrome with hypertension Osteoarthritis Hyperlipidemia Surgical History History of total left knee replacement (04/2022) S/P trigger finger release History of total knee replacement RT 05/02/20: SAB L3-L4 x 1 attempt + PNB. No postop issues per anesthesia progress note. [employer] journey 2 patient matched total knee arthroplasty size 8 femur size 7 tibia with an 18 x 100 mm stem 12 mm polyethylene high flex 35 oval patella History of total right knee replacement (04/2020) History of arthroscopy RT KNEE H/O knee surgery LEFT KNEE D/T INFECTION Hx of vasectomy History of colonoscopy Hx of oral surgery History of tonsillectomy Family History Brother Diabetes Grandmother (Maternal) Diabetes Mother Stomach cancer Hypertension Father Diabetes Hypertension Other No family history of adverse response to anesthesia Denies family history of Ovarian cancer Prostate cancer Breast cancer Colorectal cancer Social History Smoking Status: Never smoker Second Hand Exposure: No; Do You Dip or Chew Tobacco: No; Tobacco Cessation Education Requested by Patient: No Hx Alcohol Use: Yes Alcohol type: beer Hx Substance Use: No Preferred Language: Venezuelan Communication Ability: Effective Visual Impairment: No Limitations Hearing Ability: Normal Mechanical Engineering Director Required: No Beliefs That Will Affect Care: None marital status: Current Living Situation: Spouse 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 NAD. Cooperative. HEENT: Atraumatic, normocephalic. Vision and hearing grossly intact Pulm: Diminished but grossly clear symmetrical chest rise. No increased work of breathing. No respiratory distress. Cardiac: RRR, -mrg. Radial pulses intact and symmetrical. Abdominal: Softly distended, patient Dors is right lower quadrant pain however this is not worsened on palpation. No rebound or guarding. Extremities: Soft tissue swelling, no pitting edema. No calf tenderness to palpation. Distal extremity strength and sensation are intact Results & Data Results & Data Vital Signs (Past 12 Hours) Vital Signs Temp Pulse Pulse Resp BP BP Pulse Ox 02/23/24 12:00 176/82 H 02/23/24 12:00 48 L 20 97 02/23/24 11:44 164/85 H 02/23/24 11:33 47 L 17 97 02/23/24 11:33 164/85 H 02/23/24 11:02 47 L 28 H 98 02/23/24 11:00 98 H 171/80 H 02/23/24 10:00 49 L 15 97 02/23/24 10:00 181/85 H 02/23/24 09:55 53 L 02/23/24 09:53 54 L 22 97 02/23/24 09:53 190/95 H 02/23/24 07:29 36.2 C L 63 20 199/97 H 97 O2 Del Method 02/23/24 12:00 02/23/24 12:00 02/23/24 11:44 02/23/24 11:33 02/23/24 11:33 02/23/24 11:02 02/23/24 11:00 02/23/24 10:00 02/23/24 10:00 02/23/24 09:55 02/23/24 09:53 02/23/24 09:53 02/23/24 07:29 Room Air PG Care Time/CCT Total # of Minutes Spent Total Time Spent with Patient: Total time spent is greater than 50% in coordination of care (as documented) at patient's floor/unit and/or counseling patient: Coding Level of Care Code 42174 INT INP/OBS CARE 375MIN Diagnoses Abdominal pain R10.9 Hepatosplenomegaly R16.2 Hematuria R31.9 Prediabetes R73.03 Sleep apnea G47.30 HLD (hyperlipidemia) E78.5 Bradycardia R00.1
[2024-02-23 14:12] LABS: Creatine Kinase 103 U/L (30-223); Lactate Dehydrogenase 211 U/L (86-244)
--- NOTE | 2024-02-23 14:24 | XRay Report ---
XR chest 1V portable HISTORY: 58 years-old Male R flank pain acute chest and right-sided flank pain COMPARISON: 04/05/2022 TECHNIQUE: AP view of the chest FINDINGS: Cardiac silhouette is enlarged. No pneumothorax, pleural effusion or airspace consolidation. Bones ap pear grossly intact. Spondylotic spurring of the spine. IMPRESSION: No acute process. ACT 112: Negative or not required by law. The above report was generated using voice recognition software. It may contain grammatical, syntax o r spelling errors. Electronically signed by: Bassem Rivers M.D. 02/23/2024 2:22 PM
[2024-02-23 15:13] LABS: C Reactive Protein 8.2 mg/dl (0-0.5)
--- NOTE | 2024-02-23 15:36 | Ultrasound Report ---
US duplex renal artery CLINICAL HISTORY: renal atrophy, HTN TECHNIQUE: Real-time grayscale and color and spectral Doppler ultrasound imaging of the kidneys was p erformed. Comparison: None available at the time of this dictation. FINDINGS: Right kidney measures 13.6 cm. Left kidney measures 11.1 cm. RIGHT: The right kidney is normal in size, contour, cortical thickness, and echogenicity. No hydronephrosis is identified. No renal lesion is identified. Spectral analysis: Intrarenal resistive indices measure up to 0.66. Waveforms are normal in appearance.. Renal artery ve locities and waveforms are normal. Renal vein patent. LEFT: The left kidney is normal in size, contour, cortical thickness and echogenicity. No hydronephrosis i s identified. No renal lesion is identified. Spectral analysis: Intrarenal resistive indices measure up to 0.66. Waveforms are normal in appearance. Renal artery laith ocities and waveforms are normal. Renal vein patent. Abdominal aorta: Patent. Peak systolic velocity 134 cm/s. Bladder: Normal. Bilateral ureteral jets present. Reference ranges: Normal main renal artery peak systolic velocity less than 180 cm/s. Ratio of renal artery PSV to aort ic PSV less than 3.5 equates to normal or less than 60% stenosis. Only one of the two criteria listed needs to be met for diagnosis. Arcuate resistive indices about 0.8 are elevated. IMPRESSION: No evidence of renal artery stenosis. ACT 112: Negative or not required by law. Electronically signed by: Clinton Adrian M.D. 02/23/2024 3:35 PM
[2024-02-23] MEDS ORDERED: GLUCAGON FOR INJ 1 MG VIAL SQ PRN (16:10)
[2024-02-23] MEDS ORDERED: CARBOHYDRATES FOR HYPOGLYCEMIA PO PRN (16:10)
[2024-02-23] MEDS ORDERED: ATROPINE SULFATE 0.1 MG/ML 5ML SYR IV PRN (16:10)
[2024-02-23] MEDS ORDERED: GLUCOSE 40% GEL 15 GM TUBE PO PRN (16:10)
[2024-02-23] MEDS ORDERED: GLUCOSE 10 TAB/TUBE PO PRN (16:10)
[2024-02-23] MEDS ORDERED: DEXTROSE 50% 50 ML SYRINGE IV PRN (16:10)
--- NOTE | 2024-02-23 16:10 | Urology Consultation ---
Date of Consultation February 23, 2024 Assessment & Plan (1) Hematuria: (2) Abdominal pain: Plan 58yo M admitted to medicine service with diffuse myalgias, right flank/RLQ pain, and calf pain. Urology consulted for microscopic hematuria. -Patient afebrile, hypertensive and bradycardic. -Labs today WBC 5.88, hemoglobin 11, creatinine 1.29. -Urinalysis with 3+ blood, >30 RBC, 5-10 WBC. -Voiding spontaneously, continue to monitor. Bladder scan prn. -CT A/P reviewed Mild R>L perinephric stranding, No hydronephrosis, Mild atrophy with scarring of L kidney, Decompressed urinary bladder with wall thickening, Prostate is upper limits of normal in size. -No acute intervention warranted. -Recommend urine culture to r/o infection. -He does not appear infected (no fever or leukocytosis) but could consider empiric antibiotics for possible infection given flank pain and hematuria. -Continue supportive care and monitoring. -We discussed microscopic hematuria and potential etiologies. We discussed the workup for hematuria including imaging of the upper tracts, urine culture, urine cytology, and cystoscopy. -We discussed office cystoscopy to complete the hematuria workup, he is agreeable. Will arrange with our office. -Urology will follow peripherally. Plan reviewed with Dr. Sandoval, on-call urologist. History of Present Illness Attending Physician: Catracho Del Angel MD History of Present Illness 58-year-old male with a past medical history of sleep apnea, hyperlipidemia, obesity, prediabetes who presented to the ER 02/23/24 with myalgias, right flank pain, and generalized epigastric discomfort. Over the past 3 weeks, patient has had multiple symptoms including left calf pain, diffuse body aches, right flank pain, shortness of breath, and chills/shakes. He underwent workup with his PCP and tested negative for COVID and the flu. He had a LE Doppler for DVT evaluation which was normal. He did have a urinalysis which noted blood in the urine. Last night he developed severe and worsening right flank pain which prompted his arrival to the ED today. In the ED, he was afebrile, bradycardic, and hypertensive. Labs were notable for a hemoglobin 11.0 (previously 13.8 approx 1month ago), no leukocytosis and normal renal function. Urinalysis with 3+ blood, negative nitrite, negative LE, 510 WBC,>30 RBC, negative bacteria. CT abdomen pelvis - 1. No bowel obstruction or pneumoperitoneum. 2. Equivocal wall thickening within the pylorus/proximal duodenum could be correlated with endoscopy if of further clinical concern. 3. Hepatosplenomegaly with hepatic steatosis. 4. Mild atrophy with scarring of the left kidney. 5. Numerous subcentimeter sclerotic foci, most pronounced in the bony pelvis and proximal femora are nonspecific, possibly representing osteopoikilosis. Correlate with prior imaging. Patient was scheduled in the urology clinic on 02/25/2024 for new patient evaluation of microscopic hematuria. 02/06/2024 urinalysis with trace blood, 510 RBC 02/16/2024 urinalysis with 2+ blood, 1030 RBC 02/23/2024 urinalysis with 3+ blood, >30RBC. Patient examined at bedside in the ED. Awake, sitting in bedside chair on arrival. No acute distress. Denies fever, chills, nausea, vomiting. Denies gross hematuria or dysuria. Denies scrotal or testicular pain or discomfort. Right flank pain has improved since arrival. Denies bothersome urinary symptoms or issues at baseline. Feels he is emptying his bladder well. Denies prior urological history. Denies history of tobacco use. Allergies Allergy/AdvReac Type Severity Reaction Status Date / Time coconut Allergy Intermediate Hives Verified 02/23/24 09:51 Penicillins Allergy Intermediate SEVERE Verified 02/23/24 09:51 DIARRHEA and HIVES Home Medications Medication Instructions Recorded Confirmed Type atorvastatin 10 mg tablet (Lipitor) 10 mg PO QPM #90 tabs 08/26/23 02/23/24 Rx ibuprofen 200 mg tablet 400 mg PO Q6H PRN Pain 02/23/24 02/23/24 History Patient History Medical History Prediabetes Morbid obesity Pulmonary hypertension RVSP 38 mmHg on 2019 echo White coat syndrome with hypertension Osteoarthritis Hyperlipidemia Surgical History History of total left knee replacement (04/2022) S/P trigger finger release History of total knee replacement RT 05/02/20: SAB L3-L4 x 1 attempt + PNB. No postop issues per anesthesia progress note. [employer] alex 2 patient matched total knee arthroplasty size 8 femur size 7 tibia with an 18 x 100 mm stem 12 mm polyethylene high flex 35 oval patella History of total right knee replacement (04/2020) History of arthroscopy RT KNEE H/O knee surgery LEFT KNEE D/T INFECTION Hx of vasectomy History of colonoscopy Hx of oral surgery History of tonsillectomy Family History Brother Diabetes Grandmother (Maternal) Diabetes Mother Stomach cancer Hypertension Father Diabetes Hypertension Other No family history of adverse response to anesthesia Denies family history of Ovarian cancer Prostate cancer Breast cancer Colorectal cancer Social History Smoking Status: Never smoker Second Hand Exposure: No; Do You Dip or Chew Tobacco: No; Tobacco Cessation Education Requested by Patient: No Hx Alcohol Use: Yes Alcohol type: beer Hx Substance Use: No Preferred Language: Portuguese Communication Ability: Effective Visual Impairment: No Limitations Hearing Ability: Normal Geometry Tutor Required: No Beliefs That Will Affect Care: None marital status: Current Living Situation: Spouse current occupational status: 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 Other Information That Helps Us Care for You: No Feels Safe at Home: Yes Diet: regular Diet Comment: regular caffeine: Yes during the past year weight has: remained stable Dental Care, Regularly: Yes Physical Activity Frequency: Daily Seatbelt Use: always Sunscreen Use: Yes Assistive Devices: CPAP and Glasses Review of Systems Review of Systems: All systems reviewed & are unremarkable except as noted in HPI & below Physical Exam Constitutional: + obese; no acute distress Neck: normal visual inspection Respiratory: normal respiratory effort; no respiratory distress and no labored breathing Musculoskeletal: Head/Neck/Chest: normocephalic Skin: No visible rashes or lesions to exposed skin areas Neurologic: moves all extremities and awake Psychiatric: A+Ox3, euthymic affect Results & Data Vital Signs (Past 12 Hours) Vital Signs Temp Pulse Pulse Resp BP BP Pulse Ox 02/23/24 12:00 176/82 H 02/23/24 12:00 48 L 20 97 02/23/24 11:44 164/85 H 02/23/24 11:33 47 L 17 97 02/23/24 11:33 164/85 H 02/23/24 11:02 47 L 28 H 98 02/23/24 11:00 98 H 171/80 H 02/23/24 10:00 49 L 15 97 02/23/24 10:00 181/85 H 02/23/24 09:55 53 L 02/23/24 09:53 54 L 22 97 02/23/24 09:53 190/95 H 02/23/24 07:29 36.2 C L 63 20 199/97 H 97 O2 Del Method 02/23/24 12:00 02/23/24 12:00 02/23/24 11:44 02/23/24 11:33 02/23/24 11:33 02/23/24 11:02 02/23/24 11:00 02/23/24 10:00 02/23/24 10:00 02/23/24 09:55 02/23/24 09:53 02/23/24 09:53 02/23/24 07:29 Room Air PG Care Time/CCT Total # of Minutes Spent Total Time Spent with Patient: Total time spent is greater than 50% in coordination of care (as documented) at patient's floor/unit and/or counseling patient: Coding Level of Care Code 20660 IN/OBS CONSULT LVL 3,45M Diagnoses Hematuria R31.9 Abdominal pain R10.9
[2024-02-23] MEDS: LACTATED RINGER'S 1,000 ML IV SCH (16:28)
[2024-02-23] MEDS: INSULIN ASPART PER UNIT CHARGE SC SCH (17:26)
[2024-02-23] MEDS: ENOXAPARIN INJ 40 MG/0.4 ML SYR SQ SCH (20:27)
[2024-02-24] MEDS: ACETAMINOPHEN 325 MG TAB PO PRN (07:05)
--- NOTE | 2024-02-24 07:12 | Hospitalist Progress Note ---
Date of Service February 24, 2024 Assessment & Plan (1) Hemoglobin decreased: (2) Acute right flank pain: (3) Bradycardia: (4) Hepatosplenomegaly: (5) Abdominal pain: (6) Hematuria: Plan (1) Abdominal pain: Plan: Diffuse myalgias, flank pain, RLQ pain, right calf pain CT-A/P: CTA/P of the abdomen with contrast shows no evidence of obstruction or pneumoperitoneum, does show thickening of the pylorus and proximal duodenum? Duodenitis versus GERD/ulcer, hepatosplenomegaly with hepatic steatosis, atrophy with scarring of the left kidney, and numerous subcentimeter sclerotic foci in the bony pollicis nonspecific without prior imaging available for comparison. Normal stool burden. He has had normal lower extremity dopplers - No evidence of appendicitis. No evidence of cholecystitis. Has been stable on atorvastatin for many years. White blood cell count unremarkable, no transaminitis is present, no GUERA Lyme negative, afebrile in the ER Patient has been afebrile, but does endorse he has had some shaking and chills. He does not have leukocytosis and is not leukopenic. Blood cultures were drawn, no clear indication for antibiotics at time of admission. Duodenal thickening -w/ elevated BUN, no clinical GIB and negative FOB -Hepatosplenomegaly with evaluation as noted below. Pt w/ duodenal/pyloric thickening --> PPI ordered, nonemergent GI followup for EGD Hepatosplenomegaly -Patient has no known history of this, reports he has not had a CT of his abdomen before -Does have a history of sleep apnea -Has a history of prediabetes, reports he has not had diabetes although this runs in his family. -Transaminases and bilirubin are normal, no indication of biliary disease on CT -No signs of acute hepatitis Denies GI bleeding, malabsorption, dysmotility, purpura, or neuropathy. Troponins were normal, echo was normal. Alk phos is normal. Total protein is not elevated, normal. Serum calcium was normal. Patient does have associated 2+ urine protein, hematuria, and pelvic sclerotic lesions, in addition to potential cardiac conduction change with new bradycardia? Amyloid, no restrictive cardiomyopathy was noted on echo. M protin/SPEP/UPEP have been orderedESR and CRP are markedly elevated, omer panel is pending Hematuria -CT with mild atrophy of the left kidney with cortical scarring, bilateral perinephric stranding. Prostate upper limit of normal in size -3+ hematuria redemonstrated on multiple UAs -No evidence of stones or UTI -Urology consulted Prediabetes -BSG daily, admitting glucose reasonable 117. Patient was previously on metformin however this was stopped as it was his only medication change prior to developing his current illness. SSI, type II DM diet Sleep apnea -CPAP nightly HLD (hyperlipidemia) -Stable on atorvastatin for many years, CK is pending, low suspicion this is the cause of his symptoms Bradycardia -Sinus bradycardia rates into the 40s on admission -Patient reports he does not think he has a history of this. Lightheadedness, dizziness, syncope, presyncope -Recent echo normal -Patient does have chronotropic response when moving at bedside assessment -Lyme test is pending -Continue on PCU, atropine on-call if patient becomes symptomatic -No ischemic changes on EKG, high-sensitivity troponin have been normal x 2 Plan DVT prophylaxis: Lovenox Disposition: PCU due to bradycardia Diet: Type II DM, CODE STATUS: Full code Admission and Anticipated Discharge Date Admission Date: February 23, 2024 Review of Systems Review of Systems: As per above Results & Data Results & Data Vital Signs (Past 12 Hours) Vital Signs Temp Pulse Pulse Resp BP Pulse Ox O2 Del Method 02/24/24 03:05 36.7 C 59 L 18 157/78 H 97 Room Air 02/23/24 23:55 36.8 C 68 18 188/94 H 99 Room Air 02/23/24 23:33 52 L 02/23/24 22:25 64 21 97 02/23/24 21:23 166/79 H 02/23/24 20:12 36.7 C 56 L 20 189/91 H 97 Room Air FiO2 02/24/24 03:05 02/23/24 23:55 02/23/24 23:33 02/23/24 22:25 21 02/23/24 21:23 02/23/24 20:12 Resident Activity Tracking Resident Involvement: Resident Care Provided Care Provided: Adult Hospital Medicine
[2024-02-24 07:37] LABS: Basophils # (auto) 0.03 K/uL (0.00-0.20); Basophils % (auto) 0.6 %; Eosinophils # (auto) 0.11 K/uL (0.00-0.50); Eosinophils % (auto) 2.1 %; Hematocrit (blood only) 33.2 % (42.0-52.0); Immature Granulocytes # (auto) 0.03 K/uL (0.01-0.20); Immature Granulocytes % (auto) 0.6 %; Lymphocytes # (auto) 1.15 K/uL (1.20-3.40); Lymphocytes % (auto) 21.5 %; Mean Corpuscular Hemoglobin 29.5 pg (25.0-34.0); Mean Corpuscular Hgb Conc 33.1 g/dL (32.0-36.0); Mean Platelet Volume 9.6 fL (9.4-12.4); Monocytes # (auto) 0.52 K/uL (0.11-0.59); Monocytes % (auto) 9.7 %; Neutrophils # (auto) 3.52 K/uL (1.40-6.50); Neutrophils % (auto) 65.5 %; Platelet Count 210 K/uL (130-400); RDW Coefficient of Variation 12.3 % (11.5-14.5); Red Blood Count 3.73 M/uL (4.70-6.10); White Blood Count 5.36 K/ul (4.8-10.8)
[2024-02-24 08:46] LABS: Albumin Globulin Ratio 0.9 (0.9-2); Albumin Level 3.4 gm/dl (3.4-5.0); BUN Creatinine Ratio 19.2 (10-20); Bilirubin,Total 1.2 mg/dl (0.2-1.0); Calcium 8.8 mg/dl (8.6-10.3); Creatinine Clr Calc Pharmacy 103.9 ml/min; Est GFR (African American) 75.7 ml/min; Est GFR (Non-African American) 65.3 ml/min; Globulin 3.6 gm/dl (2.5-4.0); Potassium 4.3 mmol/L (3.5-5.1)
[2024-02-24] MEDS: LANTUS PER UNIT CHARGE SQ SCH (09:15)
[2024-02-24] MEDS: PANTOprazole 40 MG in SYRINGE 0 ML IV SCH (11:33)
--- NOTE | 2024-02-24 15:38 | Discharge Summary ---
Date of Service February 24, 2024 Admission HPI Per Admitting Provider Pierce is a 58-year-old male who presents to the ER with myalgias, right flank pain, and generalized epigastric discomfort which has been progressively worsening and is currently a 7/10. He has had outpatient workup including a echo which showed grade 1 diastolic dysfunction and a normal EF of 60-65% with no wall motion abnormalities or evidence of effusion. In the ER was found to have a 3 point hemoglobin drop compared to his last baseline 1 month ago without melena or hematochezia and with a negative fecal occult blood. He does not have an GUERA, BUN is elevated at 28. UA is contaminated with epithelial cells, but also with 3+ blood. CTA/P of the abdomen with contrast shows no evidence of obstruction or pneumoperitoneum, does show thickening of the pylorus and proximal duodenum? Duodenitis versus GERD/ulcer, hepatosplenomegaly with hepatic steatosis, atrophy with scarring of the left kidney, and numerous subcentimeter sclerotic foci in the bony pollicis nonspecific without prior imaging available for comparison. Patient was discussed with the ER, due to overall poor clinical appearance, progressive pain and concern for potential GI bleed with elevated BUN, duodenal findings on CT, 3 point hemoglobin drop in 1 month patient was recommended for inpatient observation. 3 weeks ago had LEFT calf pain. That evening was 'shaking, wasn't cold but just kept shaking all over and had to keep peeing.' The following day developed diffuse aches. Back, abdomen, belly 'my whole fricken body ached.' Saw Dr. Moreno and was test for COVID/Flu which were negative. BSG was OK. Had recently started metformin 3 weeks prior, but didn't think it was a reaction from this but held it and has not taken that since. Sx have not improved. EKG at that time looked OK. Had a LE doppler to look for DVT which was normal. He developed some shortness of breath as well, ahd the ECHO but that was OK. Friday had a UA --> blood in the urine. Gradually felt a little better but not much. Repeat doppler with NO evidence of DVT. Was placed on antibiotics for possible cellulitis due to the calf still hurting. Did not help his sx. Repeat UA showed 3+ blood --> Was referred to have a CT scan and see urology. Yesterday 'I felt much worse' diffuse body aches, no energy, no appetite, no nausea/vomiting, no diarrhea/melena/hematochezia. Has some constipation at baseline, but no change in normla bowel regimen. Friday felt initially a little better in the morning, and then after dinner had R flank pain and woke up at midnight ~10pm with worsened RLQ quadrant pain whihc was persistent. --> ER. Did not start to fade until about an hour ago. Worse with laying/pressure, better with rest. No night sweats. +chills/shakes as noted. Pt denies history of IA, CHF. Bradycardia is new Pt reports he had a tick bite last year on his R knee last year and was on prophylactic doxy No Fhx DVT. Pt did have a history of LEFT DVT 20 years ago in the setting of an infection. Was not on a blood thinner, recovered with antibiotics and aspirin. FHX: Not sure about fathers hx thinks HTN, Mother with HTN but nO IA. Medical History: Reviewed Medications: Reviewed Surgical History: Reviewed Family history: Reviewed Allergies: Reviewed Social History: Etoh intermittently with golf, none in new years. No tobacco Code Status: Full Admission Exam Per Admitting Provider General: A&Ox3. NAD. Cooperative. HEENT: Atraumatic, normocephalic. Vision and hearing grossly intact Pulm: Diminished but grossly clear symmetrical chest rise. No increased work of breathing. No respiratory distress. Cardiac: RRR, -mrg. Radial pulses intact and symmetrical. Abdominal: Softly distended, patient Dors is right lower quadrant pain however this is not worsened on palpation. No rebound or guarding. Extremities: Soft tissue swelling, no pitting edema. No calf tenderness to palpation. Distal extremity strength and sensation are intact Principal Diagnosis Abdominal pain, hematuria Discharge Exam Constitutional WD/WN, vitals as above Eyes PERRL, conjunctivae normal, anicteric sclerae ENMT external ear and nose normal, oropharynx normal Respiratory Breathing unlobred, not in any respiratory distress. Skin no rashes, warm and dry Psychiatric A+Ox3, euthymic affect Discharge Data Allergies Allergy/AdvReac Type Severity Reaction Status Date / Time coconut Allergy Intermediate Hives Verified 02/23/24 09:51 Penicillins Allergy Intermediate SEVERE Verified 02/23/24 09:51 DIARRHEA and HIVES Consultations 02/23/24 13:07 ED Decision to Admit Stat 02/23/24 16:10 Consult Urology Routine Ordered Studies 02/23/24 08:01 CT abd pelvis IV con only Stat IMPRESSION: 1. No bowel obstruction or pneumoperitoneum. 2. Equivocal wall thickening within the pylorus/proximal duodenum could be correlated with endoscopy if of further clinical concern. 3. Hepatosplenomegaly with hepatic steatosis. 4. Mild atrophy with scarring of the left kidney. 5. Numerous subcentimeter sclerotic foci, most pronounced in the bony pelvis and proximal femora are nonspecific, possibly representing osteopoikilosis. Correlate with prior imaging. 02/23/24 13:25 US duplex renal artery Routine IMPRESSION: No evidence of renal artery stenosis. Hospital Course (1) Hemoglobin decreased: (2) Acute right flank pain: (3) Bradycardia: (4) Hepatosplenomegaly: (5) Abdominal pain: (6) Hematuria: Plan Abdominal pain: -Diffuse myalgias, flank pain, RLQ pain, right calf pain on admission CTA/P as above, no overt signs of origin aside from possibly pylorus/proximal duodenal wall thickening. -ESR, CRP elevated, CONTRERAS pending, UPEP/SPEP pending from admission. Lyme negative, Anaplasma test pending. -U/A w/ 2+ protein, 3+ blood, 5-10 WBC, >30 RBC. No culture was able to sent before discharge. -Blood cultures pending. -Has been afebrile. -Suspect pain likely from ? gastritis/persistent gastroenteritis symptoms. -[place] better Day after admission. discussed using PPI - he will use OTC meds. -He will follow up with PCP on 03/01 Duodenal thickening -Noted on CT. No clinical GIB and negative FOB -Recommend outpatient GI follow up or EGD. -PPI as above. Hepatosplenomegaly -Transaminases and bilirubin are normal, no indication of biliary disease on CT. -Patient had notable elevated ESR and CRP on admission, CONTRERAS pending. -Outpatient f/u with pcp. Hematuria/Proteinuria -CT with mild atrophy of the left kidney with cortical scarring, bilateral perinephric stranding. Prostate upper limit of normal in size -3+ hematuria demonstrated on multiple UAs -Normal kidney function. -Urology consulted, stated they would follow up with patient in office with further workup of in office cystoscopy. Bradycardia -Sinus bradycardia rates into the 40s on admission. Asymptomatic - no Lightheadedness, dizziness, syncope, presyncope -No ischemic changes on EKG, high-sensitivity troponin have been normal x 2 -Recent echo normal -Patient does have chronotropic response when moving at bedside assessment -Lyme test negative -No further intervention. Pelvic sclerotic lesion -Per image reading - these are nonspecific. Total Time Total Time Spent Total Time Spent (In Minutes): Please see attending attestation. Discharge Plan Discharge Items Patient Disposition: Home - Self-Care Reason For Visit: MYALGIAS, HEMATURIA, BRADYCARDIA Discharge Diagnosis: Abdominal pain, hematuria Condition on Discharge: Good Activity: Per Instructions section Non-emergency contact: Primary Care Provider, [employer] and Urologist Call non-emergency contact if: your symptoms worsen, your pain is worsening and your temperature is above 101 Follow-up/Referrals: Bethanie Moreno DO [Primary Care Provider] - 03/02/24 9:20 am Carlito Sandoval DO [Physician] - Diet: Regular Ambulatory Orders: Urine Culture (Routine) Timeframe: 1 Day Location: Determined by Patient Ordered By: Kane Madrid Attending Provider Instructions: You came to the hospital for worsening of weakness, abdominal pain, nausea. While you were hospitalized you had blood work performed which showed a mildly reduced hemoglobin. A scan of your abdomen showed some thickening of your esophageal area as well as some enlargement of your liver and spleen. You were given some medications to help bring down the irritation from stomach acid that may be causing the thickened esophagus and your symptoms. Overnight into the next day you had improvement of your symptoms and remained stable. Your hemoglobin count also remained stable at 11. We discussed possibly continuing the pantoprazole medication that helped keep the acid down. If you feel like you are getting the abdominal or epigastric pain again you may take over the counter Famotidine (Pepcid) at either 20mg or 40mg up to twice a day, or you could take omeprazole 40mg up to twice a day. It would be advisable to follow up with gastroenterology outpatient for further workup of the thickening of the esophagus. You were also seen by the urologist while in the hospital who talked to you about blood in the urine that was found on urinalysis. The urologist had recommended obtaining a urine culture to rule out infection however you were discharged before you can provide a sample. We will have an order for urine culture in the [facility] so that you may go to any outpatient lab to give the sample. Please follow up with urology clinic for further workup of the blood in the urine. Please follow up with Dr. Moreno on Friday as planned. If you have any worsening of your symptoms or cannot eat or drink without vomiting please contact Dr. Moreno's office or come back to the ER. Pending Studies at Discharge: Yes (blood cultures, CONTRERAS with reflex) Stand-Alone Forms: My [facility], Smoking Cessation Medications and DC Order Prescriptions: Continued atorvastatin [Lipitor] 10 mg tablet 10 mg PO QPM Qty: 90 1RF ibuprofen 200 mg Tablet 400 mg PO Q6H PRN (Reason: Pain) Discharge Orders: Discharge Order (Routine); Ordered 02/24/24 Ordered By: Kane Anrdes Admission Data Admit Date/Time: 02/23/24 14:30 Attending Provider: Laxmi Stack Admit Provider: Catracho Del Angel Primary Care Provider: Bethanie Moreno Other Providers: Carlito Sandoval; Catracho Del Angel Other Interventions: Discharge Summary Assessment (RN) Last Done: 02/24/24 15:15 Supervising Physician Co-Signing Physician Notes Attending Physician Supervision Note: I independently interviewed and examined the patient and verified the anaya history and physical, reviewed labs and image studies and agree with findings and care plan noted above. Resident Activity Tracking Resident Involvement: Resident Care Provided Care Provided: Adult Hospital Medicine
[2024-02-25 11:08] LABS: Anti Nuclear Antibody Screen NEGATIVE (NEGATIVE)
--- NOTE | 2024-02-25 13:49 | Electrocardiogram Report ---
Test Reason : Blood Pressure : / mmHG Vent. Rate : 046 BPM Atrial Rate : 046 BPM P-R Int : 200 ms QRS Dur : 100 ms QT Int : 432 ms P-R-T Axes : 044 -08 024 degrees QTc Int : 378 ms Sinus bradycardia Minimal voltage criteria for LVH, may be normal variant ( R in aVL ) Borderline ECG When compared with ECG of 05-APR-2022 08:40, No significant change was found Confirmed by Gurdeep Zamora ([id number]) on 02/25/2024 1:48:27 PM Referred By: REFERRED SELF Confirmed By:Gurdeep Zamora
[2024-02-27 06:22] LABS: Creatinine Ur 261 mg/dL (20-320); Protein, Urine Random 208 mg/dL (5-25); Ur Protein/Creat Ratio mg/g 797 mg/g creat (25-148); Urine Abnormal Protein Band 1 DNR mg/dL (NONE DETECTED); Urine Abnormal Protein Band 2 DNR mg/dL (NONE DETECTED); Urine Abnormal Protein Band 3 DNR mg/dL (NONE DETECTED); Urine Protein/Creatinine Ratio 0.797 (0.025-0.148)
[2024-02-27 10:11] LABS: Albumin 3.3 g/dL (3.8-4.8); Alpha 1 Globulin 0.4 g/dL (0.2-0.3); Babesia microti DNA Not Detected (Not Detected); Beta-1-Globulin 0.5 g/dL (0.4-0.6); Beta-2-Globulin 0.6 g/dL (0.2-0.5); Gamma Globulin 1.3 g/dL (0.8-1.7); Monoclonal Protein Band 1 DNR g/dL (NONE DETECTED); Monoclonal Protein Band 2 DNR g/dL (NONE DETECTED); Monoclonal Protein Band 3 DNR g/dL (NONE DETECTED); Total Protein 7.2 g/dL (6.1-8.1)
== END 2024-02-24 17:50 | disposition home or self-care (01) ==
LOC: ED 07:25 → 2N 07:25 → SUATTDRO 14:30 → 2N 15:05